=== PATIENT | female | born 1985 | race Two or more races ===

== ENCOUNTER 2024-11-17 07:46 | Outpatient (AMB) | payer MEDICARE, MEDICAID, SELFPAY ==
--- OUTSIDE RECORDS SUMMARY | 2024-11-17 07:48 | XMS_ITS ---
Author Name [facility] Organization Unknown History of Medication Use Medication Directions Dispensed Refills Start Date End Date Stat us predniSONE (DELTASONE) 20 mg tablet Take 1 tablet (20 mg total) by mouth 1 (one) time each day for 7 days. 10/23/2024 active predniSONE (DELTASONE) 5 mg tablet Take 3 tablets (15 mg total) by mouth 1 (one) time each day for 7 days, THEN 2 tablets (10 mg total) 1 (one) time each day for 7 days, THEN 1 tablet (5 mg total) 1 (one) time each day for 7 days. 10/23/2024 active arm brace misc 1 each 1 (one) time each day. 10/14/2024 active [place]a, 28, 0.15-0.03 mg per tablet TAKE 1 TABLET BY MOUTH EVERY DAY 10/06/2024 active esomeprazole (NexIUM) [address] capsule Take 1 capsule (40 mg total) by mouth 1 (one) time each day before breakfast. Do not open capsule. 09/18/2024 active Vitamin D3 50 mcg (2,000 unit) tablet Take 1 tablet (2,000 Units total) by mouth 1 (one) time each day. 05/25/2024 active acetaminophen (Tylenol Extra Strength) 500 mg tablet Take 2 tablets (1,000 mg total) by mouth every 6 (six) hours if needed for mild pain. 05/13/2024 active food supplemt, lactose-reduced (Boost High Protein) 0.08 gram- 1.1 kcal/mL liquid Take 1 Dose by mouth 3 (three) times a day. 03/28/2024 active DISPOSABLE GLOVES MISC 1 Container by No t Applicable route. 08/07/2023 active fluticasone propionate (FLONASE) 50 mcg/actuation nasal spray INHALE 2 SPRAYS IN EACH NOSTRIL ONCE A DAY DIRECTED 01/28/2021 active Problems Problem Status Onset Date Problem Type Date of Resoluti on Source Strabismus active 2024-09-05 ProblemAct [facility] Psychiatric diagnosis active 2019-01-15 ProblemAct [facility] Low vitamin D level active 2022-09-04 ProblemAct [facility] Low weight active 2014-09-28 ProblemAct [facility] Irregular menses active 2017-08-16 ProblemAct [facility] Developmental delay disorder active 2011-11-15 ProblemAct [facility] Thyroid nodule active 2018-01-16 ProblemAct [facility] Gastroesophageal reflux disease without esophagitis active 2014-08-03 ProblemAct [facility] Dysphagia active 2018-01-17 ProblemAct [facility] 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
--- OUTSIDE RECORDS SUMMARY | 2024-11-17 07:48 | XMS_ITS | Encounter Summary ---
Author Organization [employer] Address [address] [place] [address] Care Team Providers Care Hand Mica Plate Layer Name Role Phone Shailesh Ferrell MD Primary Care Provider [phone] Reason for Visit * Reason Onset Date Comments Request For Order(s) 11/10/2024 [employer] Order # [id number] Encounter Details Date Type Department Care Team ([facility] st Contact Info) Description 11/10/2024 Telephone Internal Medicine - [place] [address] [place] [phone] Nora Molina MA Request For Order(s) ([facility] Order # [id number]/) Social History Tobacco Use Types Packs/Day Years [...] care for your loved ones. For example, housekeeper child care or elderly care for an older adult? [...] PM EST documented as of this encounter Progress Notes * Nora Molina MA - 11/12/2024 9:29 AM EDT Scanned into chart and faxed to [facility] [phone] * Nora Molina MA - 11/10/2024 8:13 AM EDT [facility] Order # [id number] Please sign & documented in this encounter Plan of Treatment Upcoming Encounters Date Type Department Care Team (Late st Contact Info) Description 11/27/2024 9:00 AM EDT Office Visit Rheumatology - [place] [address] [place] [address] Divina Hoffman MD [address] [place] [address] 02/13/2025 8:00 AM EST Office Visit Gastroenterology - [place] 175 [facility] 175 [facility] 200 [place] [phone] Gissell Olivera NP 175 [facility] 200 [place] [address] documented as of this encounter Visit Diagnoses Not on filedocumented in this encounter Additional Health Concerns Assessment Noted Time PHQ-9 Depression Total Score: 10 025 9:43 AM EDT A fall risk assessment has been complete d for the patient 10/24/2024 9:03 AM EDT documented as of this encounter Care Teams Hand Mica Plate Layer Relationship Specialty Start Date End Date Shailesh Ferrell MD 175 [facility] 200 [place] [phone] PCP - General 06/09/22 documented as of this encounter
--- NOTE | 2024-11-17 08:08 | MHC.OFFVIS ---
Intake Visit Reasons: Problem swallowing Allergies No Known Allergies Allergy (Verified 11/10/24 08:09) HPI Comments Details: The patient is a 39-year-old female presenting with concerns related to potential worsening neurological symptoms. Historically, she experienced developmental delay and brain abnormalities on the left side. She was born in [place] with umbilical cord wrapped around her neck. She talked when she was about 9 years old and walked when she was about 7 years old. She went to school and had special education sessions. According to family, she used to speak a lot until few years ago. She has not seen a neurologist for many years. She has never had seizures, despite these findings. Recently, she has developed new tics involving her mouth and fingers and has been having staring episodes. These changes are coupled with significant reductions in her verbal communication abilities and cognition. She exhibits right-sided weakness and incontinence, with an escalation in difficulty performing activities of daily living, including eating and swallowing. Her right hand shows inflammation and bruising, suspected but unconfirmed to be due to rheumatoid arthritis, with prednisone being marginally effective. The deterioration has been apparent over several years, with a noted reduction in her speech from being very verbal to currently barely speaking, exacerbating her care. Additionally, she shows symptoms consistent with ocular issues leading to involuntary crossing of her eyes, and she manifests significant nervousness and slower motor functions. A head trauma from an accident over six years ago is on record. [facility] Medical History (Updated 11/17/24 @ 08:20 by Ari Mckeon MD) Failure of fundoplication GERD (gastroesophageal reflux disease) Low weight Irregular menses Bladder spasms Thyroid nodule External constriction of right hand Dysphagia Psychiatric diagnosis Anxiety Vitamin D deficiency Amygdalolith Strabismus Surgical History (Updated 11/10/24 @ 08:08 by Shireen Sanchez CMA) History of Moody fundoplication H/O hernia repair H/O eye surgery H/O esophagogastroduodenoscopy Family History (Updated 11/10/24 @ 08:09 by Shireen Sanchez CMA) Maternal Grandmother Leukemia Review of Systems Const Details: - Neurological- Right-sided weakness observed. - Musculoskeletal- Right hand bruising and inflammation noted. - Ophthalmologic- Involuntary eye crossing noted. Physical Exam Neuro Other: Mental Status: She is alert and awake looking around made an eye contact but did not speak. She followed some one-step commands. Cranial Nerves: There is mild central type of right-sided facial weakness. External ocular muscles are intact though her right eye seemed to stay somewhat nasally. Motor: Bulk and tone normal in all extremities. No significant muscle weakness in arms and legs. No drift. Reflexes: Deep tendon reflexes are 1+ with flexor plantars. Gait and Station: Slow and cautious holding onto hands. She resist standing or walking. Extrapyramidal: Full facial expressions and blinking. No rigidity. Movements are appropriate with no tremor or abnormality. Speech: She did not speak. Assessment & Plan Assessment & Plan (1) Chronic static encephalopathy: Code(s): G93.49 - Other encephalopathy Category: Medical (2) Right hemiparesis: Code(s): G81.91 - Hemiplegia, unspecified affecting right dominant side Category: Medical (3) Aphasia: Code(s): R47.01 - Aphasia Category: Medical Plan: I advised an MRI to evaluate the left cerebral hemisphere abnormalities and an EEG to address the staring spells and cognitive declines, ensuring these are not related to undiagnosed subclinical seizures. Continued use of current medication for suspected rheumatoid arthritis is considered while further evaluation of the right-hand inflammation persists. Observation of ocular movements and monitoring communication ability changes were addressed, making note of the vital importance to address these promptly. Regular follow-up and observation provide the best insight into the patient's changes over time. 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
== END 2024-11-17 08:29 | disposition home or self-care (01) ==
LOC: HO.HSM 07:46
PROVIDERS: PCP Student in an Organized Health Care Education/Training Program; Visit Provider Psychiatry & Neurology Neurology
DX: G93.49 Other encephalopathy (principal); G81.91 Hemiplegia, unspecified affecting right dominant side; R47.01 Aphasia; R62.59 Other lack of expected normal physiological development in childhood
CPT/HCPCS: 99205

== ENCOUNTER → 2024-11-17 07:46 | Outpatient (BNVA) | payer MEDICARE, MEDICAID, SELFPAY | PROVIDERS: PCP Student in an Organized Health Care Education/Training Program; Visit Provider Psychiatry & Neurology Neurology | DX: G93.49 Other encephalopathy (principal); G81.91 Hemiplegia, unspecified affecting right dominant side; F09 Unspecified mental disorder due to known physiological condition; R47.01 Aphasia | CPT/HCPCS: 99202 ==

== ENCOUNTER 2024-11-25 12:52 | Outpatient (REF) | payer MEDICARE, MEDICAID, SELFPAY ==
--- OUTSIDE RECORDS SUMMARY | 2024-01-15 07:26 | XMS_ITS | Encounter Summary ---
Author Organization [email or web address] Address [address] [place] [address] Care Team Providers Care Lettuce Cutter Name Role Phone Shailesh Ferrell MD Primary Care Provider [phone] Encounter Details Date Type Department Care Team (Late st Contact Info) Description 01/15/2024 7:26 AM EDT Hospital Encounter TH HISTORIC ENCOUNTERS EASTERN CONVERSION ONLY Karsten King, ESTEL[address] [place] [address] Social History Tobacco Use Types Packs/Day Years Used Date Smoking Tobacco: Never Smokeless Tobacco: Never Alcohol Use Standard Drinks/Week Comments No 0 (1 standard drink = 0.6 oz pur e alcohol) Housing Instability Answer Date Recorde d Are you worried that in the next 2 months you may not have stable housing? No 10/22/2024 Food Access & Nutrition Answer Date Rec orded Do you have access to a vari ety of food including fruits and vegetables? Yes 10/22/2024 Access to Healthcare Answer Date Record ed Within the last 3 months, ho w many times did you visit the emergency department for your medical care? 0 10/22/2024 Health Literacy Answer Date Recorded How often do you need to hav e someone help you when you read instructions, pamphlets, or other written material from your doctor or pharmacy? Never 10/22/2024 Caregiver: How often do you need to have someone help you when you read instructions, pamphlets, or other written material from your doctor or pharmacy? Not on file 10/22/2024 Financial Risk Answer Date Recorded How hard is it for you to pa y for the very basics like food, housing, medical care, and air conditioning / heating? Not very hard 10/22/2024 Transportation Answer Date Recorded Has the lack of transportati on kept you from meetings, work, or from getting things needed for daily living? No Has the lack of transportati on kept you from medical appointments or from getting medications? No 10/22/2024 Social Isolation Answer Date Recorded How often do you feel lonely or isolated from th ose around you? Never 10/22/2024 Food Risk Answer Date Recorded Within the past 12 months we worried whether our food would run out before we got money to buy more. Never true 10/22/2024 Within the past 12 months th e food we bought just didn't last and we didn't have money to get more. Never true 10/22/2024 Dependent Care Answer Date Recorded Do you need help finding or paying for care for your loved ones. For example, child care associate teacher or elderly care for an older adult? No 10/22/2024 Education Answer Date Recorded Do you think completing more education or training, like finishing a GED, going to college, or learning a trade, would be helpful for you? No 10/22/2024 Employment and Income Answer Date Recor ded During the last four weeks, have you been actively looking for work? No 10/22/2024 Living Situation Answer Date Recorded What is your living situation? 0 10/22/2024 Comments Unknown Sex and Gender Information Value Date Recorded Sex Assigned at Female 03/06/2024 9:48 AM EST Legal Sex Female 7:33 PM EST Gender Identity Female 03/06/2024 9:48 AM EST Sexual Orientation Choose not to disclose 2024 2:30 PM EST documented as of this encounter Plan of Treatment Upcoming Encounters Date Type Department Care Team (Late st Contact Info) Description 11/27/2024 9:00 AM EDT Office Visit Rheumatology - [place] [address] [place] [phone] Divina Hoffman MD [address] [place] [address] 02/13/2025 8:00 AM EST Office Visit Gastroenterology - [place] [address] [facility] [address] [place] [address] Gissell Olivera NP [address] [place] [address] documented as of this encounter Procedures Procedure Name Priority Date/Time Associated Diagnosis Comments CR BARIUM SWALLOW Routine 01/15/2024 1:3 7 PM EDT documented in this encounter Results * CR BARIUM SWALLOW (01/15/2024 1:37 PM EDT) Anatomical Region Laterality Modality Radiographic Danielle ging 01/15/2024 7:32 AM EDT Narrative 01/15/2024 1:37 PM EDT [facility] Diagnostic Imaging Department [address] [place] [address] Patient: MARY GILMAN /Age/Sex: 1985 - 38 - F Unit#: [id number] [facility] Ordering Physician: KARSTEN KING PA-C CR Barium Swallow - 01/15/24 - 0819 Report Status:Signed FINDINGS: Double contrast esophagram performed. Exam is limited due to patient's developmental delay. Patient's heavy equipment technician working to get patient to swallow barium with limited success. COMPARISON: Barium swallow December 20, 2017 HISTORY: Patient is a 38-year-old female with history of developmental delay here with her heavy equipment technician. Per patient's heavy equipment technician, reports gagging with eating. Marine Engine Mechanic radiographs: 1 view chest radiograph demonstrates cardiac and mediastinal borders within normal limits. Lungs are overall clear with mild dependent bibasilar atelectasis. Osseous structures are overall unremarkable. 1 view lateral soft tissue neck demonstrates no prevertebral soft tissue masses. Airway is widely patent. There are moderate bony degenerative changes of the cervical spine. Effervescent crystals were administered orally. Thick and thin barium were administered orally under fluoroscopic control. Pharyngoesophagram: Rapid sequence imaging of the hypopharynx during swallowing demonstrates prompt initiation of swallowing. There is normal soft palate elevation and normal epiglottic motion. There is no laryngeal penetration or north aspiration. There is moderate residual in the vallecula and in the piriform sinuses, also seen on prior imaging from November 2017. Thoracic esophagus: Limited evaluation of esophagus demonstrates overall normal mucosal pattern without evidence of ulceration or mass formation. There is suboptimal distention of esophagus due to patient taking very small sips of barium. Patient also unable to swallow 13 mm barium tablet, as heavy equipment technician reports patient typically takes pills with applesauce. Hiatal hernia: Unable to assess adequately for hiatal hernia given patient is unable to drink lying prone. No obvious fixed hiatal hernia with patient in upright position. Reflux: Not seen on today's exam 13mm Barium pill: Unable to tolerate. DAP: 1.09 Gycm^2 Exam performed and dictated by: Aydee Stewart PA-C Supervising physician: Sanjay Oleary MD IMPRESSION: Very limited exam as described above. Given patient's symptoms, recommend modified barium swallow with speech pathology present. Dictating Physician: SANJAY OLEARY Electronically Signed by: SANJAY OLEARY Dic Date/Time: 01/15/24 5270 Sign date/Time: 01/15/24 1332 Procedure Note Sanjay Oleary MD - 01/22/2024 [facility] Diagnostic Imaging Department [address] [place] [address] Patient: MARY GILMAN/Age/Sex: 1985 - 38 - F Unit#: [id number] Location/Status: SPDIGEN/REG CLI Mnemonic/Ordering Site: [facility] Ordering Physician: KARSTEN KING PA-C CR Barium Swallow - 01/15/24 - 0819 Report Status:Signed FINDINGS: Double contrast esophagram performed. Exam is limited due topatient's developmental delay. Patient's heavy equipment technician working to get patient toswallow barium with limited success. COMPARISON: Barium swallow December 20, 2017 HISTORY: Patient is a 38-year-old female with history of developmentaldelay here with her heavy equipment technician. Per patient's heavy equipment technician, reports gagging witheating. Marine Engine Mechanic radiographs: 1 view chest radiograph demonstrates cardiac andmediastinal borders within normal limits. Lungs are overall clear with milddependent bibasilar atelectasis. Osseous structures are overall unremarkable. 1view lateral soft tissue neck demonstrates no prevertebral soft tissue masses.Airway is widely patent. There are moderate bony degenerative changes of thecervical spine. Effervescent crystals were administered orally. Thick and thin bariumwere administered orally under fluoroscopic control. Pharyngoesophagram: Rapid sequence imaging of the hypopharynx duringswallowing demonstrates prompt initiation of swallowing. There is normal softpalate elevation and normal epiglottic motion. There is no laryngeal penetrationor north aspiration. There is moderate residual in the vallecula and in the piriform sinuses, also seen on prior imaging from November 2017. Thoracic esophagus: Limited evaluation of esophagus demonstrates overallnormal mucosal pattern without evidence of ulceration or mass formation. Thereis suboptimal distention of esophagus due to patient taking very small sipsof barium. Patient also unable to swallow 13 mm barium tablet, as caretakerreports patient typically takes pills with applesauce. Hiatal hernia: Unable to assess adequately for hiatal hernia given patientis unable to drink lying prone. No obvious fixed hiatal hernia with patientin upright position. Reflux: Not seen on today's exam 13mm Barium pill: Unable to tolerate. DAP: 1.09 Gycm^2 Exam performed and dictated by: Aydee Stewart PA-C Supervising physician: Sanjay Oleary MD IMPRESSION: Very limited exam as described above. Given patient's symptoms,recommend modified barium swallow with speech pathology present. Dictating Physician: SANJAY OLEARY Electronically Signed by: SANJAY OLEARY Dic Date/Time: 01/15/24 0847 Sign date/Time: 01/15/24 1339 us Karsten PALMER IMG XR PROCEDURES Final Result documented in this encounter Visit Diagnoses Not on filedocumented in this encounter Care Teams Lettuce Cutter Relationship Specialty Start Date End Date Shailesh Ferrell MD [address] [place] [phone] PCP - General 06/09/22 documented as of this encounter
--- OUTSIDE RECORDS SUMMARY | 2024-11-25 14:09 | XMS_ITS | Encounter Summary ---
Author Organization [employer] Address [address] [place] [address] Care Team Providers Care Safety Patrol Officer Name Role Phone Shailesh Ferrell MD Primary Care Provider [phone] Reason for Visit * Reason Onset Date Comments Urinary Frequency 11/12/2024 Patient incont inent Encounter Details Date Type Department Care Team (Late st Contact Info) Description 11/12/2024 Telephone Internal Medicine - [place] [address] [facility] [address] [place] [address] Shailesh Ferrell MD [address] [place] [phone] Social History Tobacco Use Types Packs/Day Years [...] for your loved ones. For example, child development consultant or elderly care for an older adult? [...] as of this encounter Progress Notes * Ivet Velasquez RN - 11/12/2024 4:17 PM EDT Call to pt # [phone], spoke to pt mother on VR Ordered a u/a for uti s/s * Lesvia Fraga - 11/12/2024 3:59 PM EDT Dark color urine Patient incontinent mother feels as though she has uti -and request test to rule out documented in this encounter Plan of Treatment Upcoming Encounters Date Type Department Care Team (Late st Contact Info) Description 11/27/2024 9:00 AM EDT Office Visit Rheumatology - [place] [address] [place] [address] Divina Hoffman MD [address] [place] [address] 02/13/2025 8:00 AM EST Office Visit Gastroenterology - [place] [address] [facility] 175 [facility] [address] [place] [phone] Gissell Olivera NP [address] [place] [address] documented as of this encounter Visit Diagnoses Diagnosis Infective urethritis- Primary documented in this encounter Additional Health Concerns Assessment Noted Time PHQ-9 Depression Total Score: 10 09/10/ 025 9:43 AM EDT A fall risk assessment has been complete d for the patient 10/24/2024 9:03 AM EDT documented as of this encounter Care Teams Safety Patrol Officer Relationship Specialty Start Date End Date Shailesh Ferrell MD 175 [facility] 200 [place] [phone] PCP - General 06/09/22 documented as of this encounter
--- OUTSIDE RECORDS SUMMARY | 2024-11-25 14:10 | XMS_ITS | Encounter Summary ---
Author Organization [employer] Address [address] [place] [address] Care Team Providers Care Senior It Engineer Name Role Phone Shailesh Ferrell MD Primary Care Provider [phone] Encounter Details Date Type Department Care Team ([facility] st Contact Info) Description 10/20/[address] [facility] [address] [phone] Lee Ann Curry PA 175 [place] [address] Social History Tobacco Use Types Packs/Day Years [...] care for your loved ones. For example, children's aide or elderly care for an older adult? [...] as of this encounter Progress Notes * Korin Espinosa - 10/20/2024 8:49 AM EDT Patricia is calling requesting a call back with her lab results documented in this encounter Plan of Treatment Upcoming Encounters Date Type Department Care Team (Late st Contact Info) Description 11/27/2024 9:00 AM EDT Office Visit Rheumatology - [place] [address] [place] [address] Divina Hoffman MD [address] [place] [address] 02/13/2025 8:00 AM EST Office Visit Gastroenterology - [place] [address] [phone] Gissell Olivera, SUSI [address] [place] [phone] documented as of this encounter Visit Diagnoses Not on filedocumented in this encounter Additional Health Concerns Assessment Noted Time PHQ-9 Depression Total Score: 10 025 9:43 AM EDT documented as of this encounter Care Teams Senior It Engineer Relationship Specialty Start Date End Date Shailesh Ferrell MD [address] [phone] PCP - General 06/09/22 documented as of this encounter
--- OUTSIDE RECORDS SUMMARY | 2024-11-25 14:10 | XMS_ITS | Encounter Summary ---
Author Organization [employer] Address [address] [place] [address] Care Team Providers Care Land Department Head Name Role Phone Shailesh Ferrell MD Primary Care Provider [phone] Encounter Details Date Type Department Care Team ([facility] st Contact Info) Description 10/22/[address] [facility] [address] [phone] Lee Ann Curry PA 175 [place] [address] Social History Tobacco Use Types Packs/Day Years [...] for your loved ones. For example, child welfare specialist or elderly care for an older adult? [...] as of this encounter Progress Notes * Gaviota Ocampo - 10/22/2024 8:51 AM EDT Yazmin (mom) called in requesting a call back to go over Patricia's blood work. Please give her a call when able [phone]. Thanks documented in this encounter Plan of Treatment Upcoming Encounters Date Type Department Care Team (Late st Contact Info) Description 11/27/2024 9:00 AM EDT Office Visit Rheumatology - [place] [address] [place] [address] Divina Hoffman MD [address] [place] [address] 02/13/2025 8:00 AM EST Office Visit Gastroenterology - [place] 175 [facility] 175 [facility] 200 [place] [phone] Gissell Olivera, SUSI [address] [place] [address] documented as of this encounter Visit Diagnoses Not on filedocumented in this encounter Additional Health Concerns Assessment Noted Time PHQ-9 Depression Total Score: 10 025 9:43 AM EDT documented as of this encounter Care Teams Land Department Head Relationship Specialty Start Date End Date Shailesh Ferrell MD 175 [facility] 200 [place] [phone] PCP - General 06/09/22 documented as of this encounter
--- OUTSIDE RECORDS SUMMARY | 2024-11-25 14:10 | XMS_ITS | Encounter Summary ---
Author Organization [employer] Address [address] [place] [address] Care Team Providers Care Local Hazmat Driver Name Role Phone Shailesh Ferrell MD Primary Care Provider [phone] Encounter Details Date Type Department Care Team (Late st Contact Info) Description 06/23/2024 Nurse Triage Gastroenterology [facility] [address] [phone] Karsten Gonzales, ESTELA [address] [place] [phone] Social History Tobacco Use Types Packs/Day Years Used Date Smoking Tobacco: Never Smokeless Tobacco: Never Alcohol Use Standard Drinks/Week Comments No 0 (1 standard drink = 0.6 oz pur e alcohol) Comments Unknown Sex and Gender Information Value [...] 11/27/2024 9:00 AM EDT Office Visit Rheumatology [facility] [address] [place] [address] Divina Hoffman MD [address] [place] [address] 02/13/2025 8:00 AM EST Office Visit Gastroenterology [facility] [address] [place] [address] Gissell Olivera, SUSI [address] [place] [address] documented as of this encounter Visit Diagnoses Not on filedocumented in this encounter Care Teams Local Hazmat Driver Relationship Specialty Start Date End Date Shailesh Ferrell MD 175 [facility] [address] [place] [address] PCP - General 06/09/22 documented as of this encounter
--- OUTSIDE RECORDS SUMMARY | 2024-11-25 14:10 | XMS_ITS | Clinical Summary ---
Author Organization [facility] Address [address] [place] [address] Phone Care Team Providers Care Direct Marketing Executive Name Role Phone Shailesh Ferrell MD Primary Care Provider [phone] Allergies No known active allergies Medications fluticasone propionate (FLONASE) 50 mcg/actuation nasal spray 1 Active DISPOSABLE GLOVES MISC 1 Container by Not Applicable route. 4 Active food supplemt, lactose-reduced (Boost High Protein) 0.08 gram- 1.1 kcal/mL liquid Take 1 Dose by mouth 3 (three) times a day. 2700 mL 11 5 Active acetaminophen (Tylenol Extra Strength) 500 mg tablet Take 2 tablets (1,000 mg total) by mouth every 6 (six) hours if needed for mild pain. 90 tablet 1 5 Active Vitamin D3 50 mcg (2,000 unit) tablet Take 1 tablet (2,000 Units total) by mouth 1 (one) time each day. 5 Active esomeprazole (NexIUM) [address] capsule Take 1 capsule (40 mg total) by mouth 1 (one) time each day before breakfast. Do not open capsule. 90 each 3 5 09/19/19 26 Active Al[place]a, 28, 0.15-0.03 mg per tablet TAKE 1 TABLET BY MOUTH EVERY DAY 84 tablet 5 5 Active arm brace miscIndications :Right hand pain,Tardive dyskinesia 1 each 1 (one) time each day. 5 Active predniSONE (DELTASONE) 5 mg tablet Take 3 tablets (15 mg total) by mouth 1 (one) time each day for 7 days, THEN 2 tablets (10 mg total) 1 (one) time each day for 7 days, THEN 1 tablet (5 mg total) 1 (one) time each day for 7 days. 42 each 5 11/14/19 25 predniSONE (DELTASONE) 20 mg tablet Take 1 tablet (20 mg total) by mouth 1 (one) time each day for 7 days. 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 Repeat in 1 year surveillance recommended Bladder spasms 08/16/2017 Irregular menses 08/16/2017 Low weight 09/28/2014 Gastroesophageal reflux disease without esophagi tis 08/03/2014 Overview (02/20/2024): S/p fundoplication 2004 Developmental delay disorder 11/15/2011 Assessment & Plan (10/24/2024 10:11 AM EDT): Orders: Interferon gamma for TB, qualitative; Future Encounters Date Type Department Care Team Description 11/14/2024 Telephone Internal Medicine - [place] [address] [facility] [address] [place] [address] Shailesh Ferrell MD 11/12/2024 Telephone Internal Medicine - [place] [address] [facility] [address] [place] [phone] Shailesh Ferrell MD 11/12/2024 Telephone [facility] - [place] [address] [facility] [address] [place] [phone] Clayton Reid MA 11/10/2024 Telephone Internal Medicine - [place] [address] [address] Nora Molina MA 11/03/2024 Telephone Rheumatology - [place] [address] [place] [address] Divina Hoffman MD 10/31/2024 Telephone Internal Medicine - [place] [address] [address] Maribel Sanon MA 10/29/2024 Telephone Internal Medicine [facility] [address] [address] Nora Molina MA 10/24/2024 9:00 AM EDT Office Visit Internal Medicine [address] [address] Edy Kwan MD Developmental delay disorder (Primary Dx); Rheumatoid arthritis, involving unspecified site, unspecified whether rheumatoid factor present ([facility] V24, [facility] V28); Preventative health care 10/23/2024 11:00 AM EDT Consult Rheumatology - [place] [address] [place] [address] Divina Hoffman MD Inflammatory arthritis (Primary Dx); Polyarthralgia; Positive DINAH (antinuclear antibody) 10/22/2024 Telephone Orthopedic Surgery - [place] [address] [address] Lee Ann Curry PA 10/22/2024 Telephone Orthopedic Surgery [facility] [address] [address] Radha Powell 10/22/2024 Telephone Orthopedic Surgery [place] [address] [address] Lee Ann Curry PA 10/21/2024 10:45 AM EDT Telemedicine Internal Medicine [facility] [address] [phone] Mariya Wolf PA Developmental delay disorder (Primary Dx) 10/21/2024 Telephone Internal Medicine - [place] 175 [facility] [address] [place] [address] Shailesh Ferrell MD 10/20/2024 Telephone Orthopedic Surgery [facility] [address] [address] Lee Ann Curry PA 10/14/2024 4:00 PM EDT Telemedicine Internal Medicine - [place] [address] [facility] [address] [place] [address] Shailesh Ferrell MD Abnormal laboratory test result (Primary Dx); Low urine uric acid level; Abnormal finding on imaging 10/14/2024 [place] Internal Medicine [facility] [address] [address] Shailesh Ferrlel MD 10/13/2024 Telephone Internal Medicine [facility] [address] [address] Shailesh Ferrell MD 10/13/2024 Telephone Orthopedic Surgery [facility] [address] [phone] Apoorva De La Torre 10/09/2024 2:00 PM EDT Consult Orthopedic Surgery [facility] 175 [facility] [address] [place] [address] Lee Ann Curry PA Rheumatoid arthritis involving right hand, unspecified whether rheumatoid factor present (CMS/HCC V24, CMS/HCC V28) (Primary Dx); Right hand pain 10/07/2024 Telephone Internal Medicine [facility] [address] [address] Nora Molina MA 10/03/2024 9:08 AM EDT - 10/03/2024 11:59 PM EDT [facility] Xray [address] [place] [address] Right hand pain Discharge Disposition: Home or Self Care 10/03/2024 9:08 AM EDT - 10/03/2024 11:59 PM EDT Hospital Encounter [facility] Xray [address] [place] [address] Chronic right shoulder pain Discharge Disposition: Home or Self Care 10/03/2024 8:30 AM EDT Office Visit Internal Medicine - [place] [address] [facility] [address] [place] [phone] aJy Heck NP Right hand pain (Primary Dx); Chronic right shoulder pain; Tardive dyskinesia; Developmental delay disorder 09/18/2024 10:40 AM EDT Office Visit Gastroenterology - [place] [address] [facility] [address] [facility] 200 [place] [address] Gissell Olivera NP Gastroesophageal reflux disease without esophagitis (Primary Dx); Dysphagia, unspecified type from Last 3 Months Surgical History Surgery Date Site/Laterality Comments OTHER SURGICAL HISTORY 2003 PROCEDURE: MI RPR INGUN HERNIA SLIDING ANY AGE; COMMENT: [facility], [place] fundoplication for reflux. ESOPHAGOGASTRODUODENOSCOPY 07/19/2017 PROCEDURE: MI EGD TRANSORAL BIOPSY SINGLE/MULTIPLE; COMMENT: Chronic gastritis without activity. No H. pylori appreciated. HERNIA REPAIR EYE SURGERY MOODY FUNDOPLICATION N/A Medical History Medical History Date Comments Moderate intellectual disabilities DX:Moderate intellectual disabilities Nausea DX:Nausea Nonverbal DX:Nonverbal History of Moody fundoplication DX:History of Moody fundoplication GERD (gastroesophageal reflux disease) Dysphagia Anxiety Family History Medical History Relation Name Comments Leukemia Maternal Grandfather Relation Name Status Comments Maternal Grandfather Social History Tobacco Use Types Packs/Day Years [...] your loved ones. For example, child nutrition assistant or elderly care for an older adult? [...] not to disclose 2024 2:30 PM EST Obstetrics History Last Filed Vital Signs Vital Sign Reading Time Taken Comments Blood Pressure 106/70 10/24/2024 9:06 AM EDT Pulse 115 10/24/2024 9:06 AM EDT Temperature 36 C (96.8 F) 10/24/2024 9:06 AM EDT Respiratory Rate 18 08/08/2024 2:47 PM EDT Oxygen Saturation 98% 10/24/2024 9:06 AM EDT Inhaled Oxygen Concentration - - Weight 48.2 kg (106 lb 3.2 oz) 10/24/2024 9:06 A M EDT Height 157.5 cm (5' 2 ) 10/24/2024 9:06 AM EDT Body Mass Index 19.42 10/24/2024 9:06 AM EDT Plan of Treatment Upcoming Encounters Date Type Department Care Team (Late st Contact Info) Description 11/27/2024 9:00 AM EDT Office Visit Rheumatology - [place] [address] [place] [phone] Divina Hoffman MD [address] [place] [address] [place] [address] 02/13/2025 8:00 AM EST Office Visit Gastroenterology - [place] [address] [place] [address] Gissell Olivera, SUSI [address] [place] [address] Health Maintenance Due Date Last Done Comments Cervical Cancer Screening: Pap Smear 2008 HIV Screening 02/25/2022 Hepatitis C Screening 02/25/2022 COVID-19 Vaccine ( season) 2024 08/06/2020, 07/13/2020 Influenza Vaccine (#1) 2024 9, 02/26/2018, 12/07/2016, Additional history exists Social Influencers of Health Screening 10/22/2025 10/22/2024 Medicare Annual Wellness Visit 10/24/2025 10/24/2024 Cholesterol Screening (Lipid Panel) 08/09/2028 08/10/2023 DTaP,Tdap,and Td Vaccines (10 - Td or Tdap) 08/11/2033 08/12/2023, 02/22/2012, 09/24/2006, Additional history exists HIB Vaccines Completed 10/24/1988, 10/24/1988 IPV Vaccines Completed 06/24/1994, 03/1988, 10/24/1988, Additional history exists MMR Vaccines Completed 06/24/1994, 01/24/1989 Hepatitis B Vaccines Completed 04/26/1999, 08/24/1998, 07/24/1998, Additional history exists Hepatitis A Vaccines Aged Out 09/24/2006 No long er eligible based on patient's age to complete this topic Meningococcal ACWY Vaccine Aged Out 09/24/2006 N o longer eligible based on patient's age to complete this topic Varicella Vaccines Completed 09/24/2006, 07/29/1998 HPV Vaccines Completed 01/15/2007, 06/2006, 06/15/2006 Depression Screening Completed 10/22/2024 Meningococcal B Vaccine Aged Out No l onger eligible based on patient's age to complete this topic Pneumococcal Vaccine: Pediatrics (0 to 5 Years) and At-Risk Patients (6 to 49 Years) Aged Out No longer eligible based on patient's age to complete this topic RSV Immunization Patients Under 20 months Aged Out No longer eligible based on patient's age to complete this topic Procedures Procedure Name Priority Date/Time Associated Diagnosis Comments MI PROTEIN ELECTROPHORETIC FRACTIONATION & QUANTITATION SERUM Routine 11/13/2024 4:33 PM EDT Polyarthralgia Low urine uric acid level MI IMMUNOFIXATION ELECTROPHORESIS SERUM Routine 11/13/2024 4:33 PM EDT Polyarthralgia Low urine uric acid level PROTEIN, TOTAL Routine 11/13/2024 4:33 PM EDT Polyarthralgia Low urine uric acid level TAM URINE CULTURE TUBE Routine 11/14/19 25 4:33 PM EDT Infective urethritis URINALYSIS WITH REFLEX MICROSCOPIC AND CULTURE Routine 11/13/2024 4:33 PM EDT Infective urethritis IMMUNOGLOBULINS IGG, IGA, IGM Routine 11/13/2024 4:33 PM EDT Polyarthralgia Low urine uric acid level IMMUNOFIXATION ELECTROPHORESIS Routine 11/13/2024 4:33 PM EDT Polyarthralgia Low urine uric acid level URINALYSIS WITH REFLEX MICROSCOPIC AND CULTURE Routine 11/13/2024 4:33 PM EDT Infective urethritis URIC ACID Routine 11/13/2024 4:33 PM EDT Polyarthralgia Low urine uric acid level SEDIMENTATION RATE Routine 11/13/2024 4: 33 PM EDT Polyarthralgia Low urine uric acid level C-REACTIVE PROTEIN Routine 11/13/2024 4: 33 PM EDT Polyarthralgia Low urine uric acid level CYCLIC CITRULLINATED PEPTIDE, IGG AND IGA Routine 11/13/2024 4:33 PM EDT Polyarthralgia Low urine uric acid level KAPPA-LAMBDA QUANTITATIVE FREE LIGHT CHAINS Routine 11/13/2024 4:33 PM EDT Polyarthralgia Low urine uric acid level IMMUNOFIXATION ELECTROPHORESIS Routine 11/13/2024 4:33 PM EDT Polyarthralgia Low urine uric acid level PROTEIN ELECTROPHORESIS, SERUM Routine 11/13/2024 4:33 PM EDT Polyarthralgia Low urine uric acid level CULTURE URINE Routine 11/13/2024 4:33 PM EDT Infective urethritis INTERFERON GAMMA INTERPRETATION Routine 10/24/2024 9:30 AM EDT Developmental delay disorder Rheumatoid arthritis, involving unspecified site, unspecified whether rheumatoid factor present ([facility] V24, [facility] V28) Preventative health care INTERFERON GAMMA ANTIGEN 2 Routine 10/24/2024 9:30 AM EDT Developmental delay disorder Rheumatoid arthritis, involving unspecified site, unspecified whether rheumatoid factor present ([facility] V24, [facility] V28) Preventative health care INTERFERON GAMMA ANTIGEN 1 Routine 10/24/2024 9:30 AM EDT Developmental delay disorder Rheumatoid arthritis, involving unspecified site, unspecified whether rheumatoid factor present ([facility] V24, [facility] V28) Preventative health care INTERFERON GAMMA MITOGEN Routine 10/24/2024 9:30 AM EDT Developmental delay disorder Rheumatoid arthritis, involving unspecified site, unspecified whether rheumatoid factor present ([facility] V24, [facility] V28) Preventative health care INTERFERON GAMMA NIL Routine 10/24/2024 9:30 AM EDT Developmental delay disorder Rheumatoid arthritis, involving unspecified site, unspecified whether rheumatoid factor present ([facility] V24, [facility] V28) Preventative health care INTERFERON GAMMA FOR TB, QUALITATIVE Routine 10/24/2024 9:30 AM EDT Developmental delay disorder Rheumatoid arthritis, involving unspecified site, unspecified whether rheumatoid factor present ([facility] V24, [facility] V28) Preventative health care THYROID STIMULATING HORMONE WITH REFLEX TO FREE T4 AND FREE T3 Routine 10/24/2024 9:30 AM EDT Thyroid nodule CBC WITH AUTO DIFFERENTIAL Routine 10/10/2024 8:48 AM EDT Right hand pain CBC AND DIFFERENTIAL Routine 10/10/2024 8:48 AM EDT Right hand pain C-REACTIVE PROTEIN Routine 10/10/2024 8: 48 AM EDT Right hand pain RHEUMATOID FACTOR Routine 10/10/2024 8:4 8 AM EDT Right hand pain SEDIMENTATION RATE Routine 10/10/2024 8: 48 AM EDT Right hand pain URIC ACID Routine 10/10/2024 8:48 AM EDT Right hand pain BASIC METABOLIC PANEL Routine 10/10/2024 8:48 AM EDT Right hand pain XR HAND 3+ VIEWS RIGHT Routine 9:26 AM EDT Right hand pain XR SHOULDER 2+ VIEWS RIGHT Routine 10/03/2024 9:26 AM EDT Chronic right shoulder pain from Last 3 Months Results * Pathologist Review Immunofixation (11/13/2024 4:33 PM EDT) Pathologist Interpretation 11/18/2024 10:45 AM EDT [facility] Blood Venous blood specimen / Unknown Venipuncture / Unknown 11/13/2024 4:33 PM EDT 11/13/2024 4:33 PM EDT Divina Hoffman MD LAB BLOOD ORDERABLES Final Res ult [facility] [address] [place] [address], [place] [phone] * (ABNORMAL) Urinalysis with reflex microscopic and culture (11/13/2024 4:33 PM EDT) Specific [place] Urine 1.025 1.003 - 1.030 LAB URINALYSIS - AUTOMATED METHOD 11/13/2024 7:46 PM EDT [facility] pH, Urine 6.0 5.0 - 8.0 pH LAB URINALYSIS - AUTOMATED METHOD 11/13/2024 7:46 PM EDT [facility] Leukocytes, Urine Trace(A) Negative LAB URINALYSIS - AUTOMATED METHOD 11/13/2024 7:46 PM EDT [facility] Nitrite, Urine Negative Negative LAB URINALYSIS - AUTOMATED METHOD 11/13/2024 7:46 PM EDT [facility] Protein, Urine Trace <=Trace mg/dL LAB URINALYSIS - AUTOMATED METHOD 11/13/2024 7:46 PM [facility] Glucose, Urine Negative Negative mg/dL LAB URINALYSIS - AUTOMATED METHOD 11/13/2024 7:46 PM [facility] Ketones, Urine Trace(A) Negative mg/dL LAB URINALYSIS - AUTOMATED METHOD 11/13/2024 7:46 PM [facility] Urobilinogen , Urine 1.0 0.2 - 1.0 mg/dL LAB URINALYSIS - AUTOMATED METHOD 11/13/2024 7:46 PM [facility] Bilirubin, Urine Negative Negative LAB URINALYSIS - AUTOMATED METHOD 11/13/2024 7:46 PM [facility] Blood, Urine Negative Negative LAB URINALYSIS - AUTOMATED METHOD 11/13/2024 7:46 PM [facility] RBC, Urine 4.0 0 - 4 /HPF LAB URINALYSIS - AUTOMATED METHOD 11/13/2024 7:46 PM [facility] WBC, Urine 5.8(H) 0 - 4 /HPF LAB URINALYSIS - AUTOMATED METHOD 11/13/2024 7:46 PM [facility] Squamous Epithelial, Urine >100(H) 0 - 60 /LPF LAB URINALYSIS - AUTOMATED METHOD 11/13/2024 7:46 PM [facility] Crystals, Urine Heavy Amorphous Urate crystals. /LPF 11/13/2024 7:46 PM [facility] Bacteria, Urine Few(A) Negative /HPF LAB URINALYSIS - AUTOMATED METHOD 11/13/2024 7:46 PM [facility] Hyaline Casts, Urine 0 0 - 3 /LPF LAB URINALYSIS - AUTOMATED METHOD 11/13/2024 7:46 PM [facility] Urine Urine specimen obtained by clean catch procedure / Unknown Non-blood Collection / Unknown 11/13/2024 4:33 PM EDT 11/13/2024 4:33 PM EDT Shailesh Ferrell MD LAB URINE ORDERABLES Final Resul t Performing Organization Address [facility] Co de Phone Number [facility] [address] [place] [address], [place] [phone] * PATHOLOGIST REVIEW PROTEIN ELECTROPHORESIS (11/13/2024 4:33 PM EDT) Pathologist Interpretation 11/18/2024 6:13 PM EDT [facility] Blood Venous blood specimen / Unknown Venipuncture / Unknown 11/13/2024 4:33 PM EDT 11/13/2024 4:33 PM EDT Divina Hoffman MD LAB BLOOD ORDERABLES Final Res ult Performing Organization Address [facility] de Phone Number [facility] [address] [place] [address], [place] [phone] * Tam urine culture tube (11/13/2024 4:33 PM EDT) Pathologist [facility] Extra Tube Hold for add-ons. 11/13/2024 7:01 PM EDT [facility] Comment:Auto resulted. Urine Urine specimen obtained by clean catch procedure / Unknown Non-blood Collection / Unknown 11/13/2024 4:33 PM EDT 11/13/2024 4:33 PM EDT Shailesh Ferrell MD LAB URINE ORDERABLES Final Resul t Performing Organization Address [facility] Co de Phone Number [facility] [address] [place] [address], [place] [phone] * [place]-lambda free light chains, quantitative (11/13/2024 4:33 PM EDT) [place] Free Light Chain 0.96 0.33 - 1.94 mg/dL 11/17/2024 1:58 PM EDT [facility] Lambda Free Light Chain 0.79 0.57 - 2.63 mg/dL 11/17/2024 1:58 PM EDT [facility] [place]/Lambda FLC Ratio 1.22 0.26 - 1.65 11/17/2024 1:58 PM EDT [facility] Comment: Test performed at [facility], [email or web address] [place] [address] Ivy Mendoza MD, PhD - Feed Adviser Blood Venous blood specimen / Unknown Venipuncture / Unknown 11/13/2024 4:33 PM EDT 11/13/2024 4:33 PM EDT us Divina Hoffman MD LAB BLOOD ORDERABLES Final Res ult Performing Organization Address City/[facility]/ZIP Co de Phone Number [facility] [address] [place] [address] * Cyclic citrullinated peptide, IgG and IgA (11/13/2024 4:33 PM EDT) [facility] CCP AB Quant 6 <20 Units LAB CHEMISTRY METHOD 11/18/2024 11:00 AM EDT [facility] Cyclic Citrullinated Peptide (CCP) Antibody Negative Negative LAB CHEMISTRY METHOD 11/18/2024 11:00 AM EDT [facility] Blood Venous blood specimen / Unknown Venipuncture / Unknown 11/13/2024 4:33 PM EDT 11/13/2024 4:33 PM EDT us Divina Hoffman MD LAB BLOOD ORDERABLES Final Res ult [facility] [address] [place] [address], * Sedimentation rate (11/13/2024 4:33 PM EDT) Only the most recent of2 resultswithin the time period is included. Pathologist [facility] Sed Rate 3 0 - 20 mm/hr LAB HEMETOLOGY METHOD 11/13/2024 6:43 PM EDT [facility] Blood Venous blood specimen / Unknown Venipuncture / Unknown 11/13/2024 4:33 PM EDT 11/13/2024 4:33 PM EDT Divina Hoffman MD LAB BLOOD ORDERABLES Final Res ult Performing Organization Address City/[facility]/ZIP Co de Phone Number [facility] [address] [place] [address], [place] [phone] * Culture urine (11/13/2024 4:33 PM EDT) [facility] Culture, Urine 10,000-49,000 CFU/mL Mixed urogenital beverly, no uropathogens present. Suggest repeat specimen if clinically indicated. 11/15/2024 9:01 AM EDT [facility] Urine Urine specimen obtained by clean catch procedure / Unknown Non-blood Collection / Unknown 11/13/2024 4:33 PM EDT 11/13/2024 7:46 PM EDT Shailesh Ferrell MD LAB MICROBIOLOGY - GENERAL ORDER MANISH Final Result Performing Organization Address City/[facility]/ZIP Co de Phone Number [facility] [address] [place] [address], [place] [phone] * Immunofixation electrophoresis serum (11/13/2024 4:33 PM EDT) [facility] Immunofixation Result, Serum No monoclonal immunoglobulins detected. LAB CHEMISTRY METHOD 11/18/2024 10:45 AM EDT [facility] Blood Venous blood specimen / Unknown Venipuncture / Unknown 11/13/2024 4:33 PM EDT 11/13/2024 4:33 PM EDT us Divina Hoffman MD LAB BLOOD ORDERABLES Final Res ult Performing Organization Address City/[facility]/ZIP Co de Phone Number [facility] [address] [place] [address], [place] [phone] * Immunoglobulins IgG, IgA, IgM (11/13/2024 4:33 PM EDT) Total IgG 991 549 - 1,584 mg/dL LAB CHEMISTRY METHOD 11/13/2024 7:25 PM EDT [facility] IgA 113 61 - 348 mg/dL LAB CHEMISTRY METHOD 11/13/2024 7:25 PM EDT [facility] IgM 144 23 - 259 mg/dL LAB CHEMISTRY METHOD 11/13/2024 7:25 PM EDT [facility] Blood Venous blood specimen / Unknown Venipuncture / Unknown 11/13/2024 4:33 PM EDT 11/13/2024 4:33 PM EDT us Divina Hoffman MD LAB BLOOD ORDERABLES Final Res ult Performing Organization Address [facility] Co de Phone Number [facility] [address] [place] [address], [place] [phone] * C-reactive protein (11/13/2024 4:33 PM EDT) Only the most recent of2 resultswithin the time period is included. C-Reactive Protein <0.29 <=0.50 mg/dL LAB CHEMISTRY METHOD 11/13/2024 7:17 PM EDT [facility] Blood Venous blood specimen / Unknown Venipuncture / Unknown 11/13/2024 4:33 PM EDT 11/13/2024 4:33 PM EDT us Divina Hoffman MD LAB BLOOD ORDERABLES Final Res ult Performing Organization Address City/[facility]/ZIP Co de Phone Number [facility] [address] [place] [address], [place] [phone] * (ABNORMAL) Uric acid (11/13/2024 4:33 PM EDT) Only the most recent of2 resultswithin the time period is included. Pathologist [facility] Uric Acid 1.7(L) 3.1 - 7.8 mg/dL LAB CHEMISTRY METHOD 11/13/2024 7:24 PM EDT [facility] Blood Venous blood specimen / Unknown Venipuncture / Unknown 11/13/2024 4:33 PM EDT 11/13/2024 4:33 PM EDT Divina Hoffman MD LAB BLOOD ORDERABLES Final Res ult [facility] [address] [place] [address], [place] [phone] * Protein electrophoresis, serum (11/13/2024 4:33 PM EDT) [facility] Total Protein 7.1 6.0 - 8.0 g/dL LAB CHEMISTRY METHOD 11/18/2024 6:13 PM EDT [facility] Albumin, Serum 4.0 2.9 - 4.1 g/dL LAB CHEMISTRY METHOD 11/18/2024 6:13 PM EDT [facility] Alpha 1 Globulin (g/dL) 0.3 0.1 - 0.5 g/dL LAB CHEMISTRY METHOD 11/18/2024 6:13 PM EDT [facility] Alpha 2 Globulin (g/dL) 0.9 0.7 - 1.5 g/dL LAB CHEMISTRY METHOD 11/18/2024 6:13 PM EDT [facility] Beta (g/dL) 1.0 0.7 - 1.5 g/dL LAB CHEMISTRY METHOD 11/18/2024 6:13 PM EDT [facility] Gamma Globulin (g/dL) 1.0 0.7 - 1.9 g/dL LAB CHEMISTRY METHOD 11/18/2024 6:13 PM EDT [facility] SPEP Interpretation No M-Vincent seen. Essentially normal pattern. LAB CHEMISTRY METHOD 11/18/2024 6:13 PM EDT [facility] Blood Venous blood specimen / Unknown Venipuncture / Unknown 11/13/2024 4:33 PM EDT 11/13/2024 4:33 PM EDT us Divina Hoffman MD LAB BLOOD ORDERABLES Final Res ult Performing Organization Address [facility]/ZIP Co de Phone Number [facility] [address] [place] [address], [place] [phone] * Protein, total (11/13/2024 4:33 PM EDT) [facility] Total Protein 7.1 6.0 - 8.0 g/dL LAB CHEMISTRY METHOD 11/13/2024 7:14 PM EDT [facility] Blood Venous blood specimen / Unknown Venipuncture / Unknown 11/13/2024 4:33 PM EDT 11/13/2024 4:33 PM EDT us Divina Hoffman MD LAB BLOOD ORDERABLES Final Res ult Performing Organization Address City/[facility]/ZIP Co de Phone Number [facility] [address] [place] [address], [place] [phone] * Interferon gamma interpretation (10/24/2024 9:30 AM EDT) Quantiferon Plus Interpretation Negative Negative LAB CHEMISTRY METHOD 10/25/2024 1:26 PM EDT [facility] Blood Venous blood specimen / Unknown Venipuncture / Unknown 10/24/2024 9:30 AM EDT 10/24/2024 9:30 AM EDT us Edy Kwan MD LAB BLOOD ORDERABLES Final Resul t Performing Organization Address [facility] Co de Phone Number [facility] [address] [place] [address], [place] [phone] * Interferon gamma antigen 2 (10/24/2024 9:30 AM EDT) Blood Venous blood specimen / Unknown Venipuncture / Unknown 10/24/2024 9:30 AM EDT 10/24/2024 9:30 AM EDT us Edy Kwan MD LAB BLOOD ORDERABLES Final Resul t Performing Organization Address [facility] de Phone Number [facility] [address] [place] [address], [place] [phone] * Interferon gamma antigen 1 (10/24/2024 9:30 AM EDT) Blood Venous blood specimen / Unknown Venipuncture / Unknown 10/24/2024 9:30 AM EDT 10/24/2024 9:30 AM EDT us Edy Kwan MD LAB BLOOD ORDERABLES Final Resul t Performing Organization Address [facility] de Phone Number [facility] [address] [place] [address], [place] [phone] * Interferon gamma mitogen (10/24/2024 9:30 AM EDT) Blood Venous blood specimen / Unknown Venipuncture / Unknown 10/24/2024 9:30 AM EDT 10/24/2024 9:30 AM EDT us Edy Kwan MD LAB BLOOD ORDERABLES Final Resul t Performing Organization Address [facility] Co de Phone Number [facility] [address] [place] [address], [place] [phone] * Interferon gamma NIL (10/24/2024 9:30 AM EDT) Blood Venous blood specimen / Unknown Venipuncture / Unknown 10/24/2024 9:30 AM EDT 10/24/2024 9:30 AM EDT Edy Kwan MD LAB BLOOD ORDERABLES Final Resul t Performing Organization Address [facility]/ZIP Co de Phone Number [facility] [address] [place] [address], [place] [phone] * Thyroid stimulating hormone with reflex to free t4 and free t3 (10/24/2024 9:30 AM EDT) TSH 1.16 0.40 - 4.00 mcIU/mL LAB CHEMISTRY METHOD 10/24/2024 2:33 PM EDT [facility] Blood Venous blood specimen / Unknown Venipuncture / Unknown 10/24/2024 9:30 AM EDT 10/24/2024 9:30 AM EDT Shailesh Ferrell MD LAB BLOOD ORDERABLES Final Resul t Performing Organization Address [facility]/ZIP Co de Phone Number [facility] [address] [place] [address], [place] [phone] * CBC auto differential (10/10/2024 8:48 AM EDT) WBC 7.1 4.8 - 10.8 K/mcL LAB HEMETOLOGY METHOD 10/10/2024 10:35 AM EDT [facility] RBC 4.50 3.80 - 4.80 M/mcL LAB HEMETOLOGY METHOD 10/10/2024 10:35 AM EDT [facility] Hemoglobin 13.3 11.5 - 16.0 g/dL LAB HEMETOLOGY METHOD 10/10/2024 10:35 AM EDT [facility] Hematocrit 40.2 35.0 - 47.0 % LAB HEMETOLOGY METHOD 10/10/2024 10:35 AM EDT [facility] MCV 88.7 79.0 - 98.0 FL LAB HEMETOLOGY METHOD 10/10/2024 10:35 AM EDT [facility] MCH 29.4 27.0 - 32.0 pcg LAB HEMETOLOGY METHOD 10/10/2024 10:35 AM [facility] MCHC 33.1 32.0 - 37.0 g/dL LAB HEMETOLOGY METHOD 10/10/2024 10:35 AM EDT [facility] RDW 12.4 11.0 - 15.0 % LAB HEMETOLOGY METHOD 10/10/2024 10:35 AM T [facility] Platelets 227 130 - 400 K/mcL LAB HEMETOLOGY METHOD 10/10/2024 10:35 AM [facility] MPV 10.4 7.0 - 11.0 FL LAB HEMETOLOGY METHOD 10/10/2024 10:35 AM [facility] NRBC 0.0 <1.0 % LAB HEMETOLOGY METHOD 10/10/2024 10:35 AM [facility] NRBC Absolute 0.00 <0.10 K/mcL LAB HEMETOLOGY METHOD 10/10/2024 10:35 AM [facility] Neutrophils Relative 70.2 % LAB HEMETOLOGY METHOD 10/10/2024 10:35 AM [facility] Lymphocytes Relative 22.2 % LAB HEMETOLOGY METHOD 10/10/2024 10:35 AM [facility] Monocytes Relative 5.5 % LAB HEMETOLOGY METHOD 10/10/2024 10:35 AM [facility] Eosinophils Relative 1.1 % LAB HEMETOLOGY METHOD 10/10/2024 10:35 AM [facility] Basophils Relative 0.6 % LAB HEMETOLOGY METHOD 10/10/2024 10:35 AM [facility] Immature Granulocytes Relative 0.4 % LAB HEMETOLOGY METHOD 10/10/2024 10:35 AM EDT [facility] Neutrophils Absolute 4.99 1.50 - 7.00 K/[facility] LAB HEMETOLOGY METHOD 10/10/2024 10:35 AM EDT [facility] Lymphocytes Absolute 1.58 1.00 - 5.00 K/[facility] LAB HEMETOLOGY METHOD 10/10/2024 10:35 AM EDT [facility] Monocytes Absolute 0.39 0.20 - 1.00 K/[facility] LAB HEMETOLOGY METHOD 10/10/2024 10:35 AM EDT [facility] Eosinophils Absolute 0.08 0.00 - 0.50 K/[facility] LAB HEMETOLOGY METHOD 10/10/2024 10:35 AM EDT [facility] Basophils Absolute 0.04 0.00 - 0.20 K/mcL LAB HEMETOLOGY METHOD 10/10/2024 10:35 AM EDT [facility] Immature Granulocytes Absolute 0.03 0.00 - 0.03 K/mcL LAB HEMETOLOGY METHOD 10/10/2024 10:35 AM EDT [facility] Blood Venous blood specimen / Unknown Venipuncture / Unknown 10/10/2024 8:48 AM EDT 10/10/2024 8:49 AM EDT us Lee Ann PALMER LAB BLOOD ORDERABLES Final Resu lt [facility] [address] [place] [address], * Rheumatoid factor (10/10/2024 8:48 AM EDT) Rheumatoid Factor <10.0 <15.0 I Unit/mL LAB CHEMISTRY METHOD 10/10/2024 11:02 AM EDT [facility] Blood Venous blood specimen / Unknown Venipuncture / Unknown 10/10/2024 8:48 AM EDT 10/10/2024 8:49 AM EDT Lee Ann PALMER LAB BLOOD ORDERABLES Final Resu lt [facility] [address] [place] [address], * Basic metabolic panel (10/10/2024 8:48 AM EDT) Sodium 136 133 - 145 mmol/L LAB CHEMISTRY METHOD 10/10/2024 10:59 AM [facility] Potassium 4.2 3.5 - 5.5 mmol/L LAB CHEMISTRY METHOD 10/10/2024 10:59 AM [facility] Chloride 106 96 - 110 mmol/L LAB CHEMISTRY METHOD 10/10/2024 10:59 AM [facility] CO2 22 21 - 32 mmol/L LAB CHEMISTRY METHOD 10/10/2024 10:59 AM [facility] Anion Gap 8 3 - 11 LAB CHEMISTRY METHOD 10/10/2024 10:59 AM [facility] Glucose 80 70 - 100 mg/dL LAB CHEMISTRY METHOD 10/10/2024 10:59 AM [facility] BUN 10 5 - 25 mg/dL LAB CHEMISTRY METHOD 10/10/2024 10:59 AM [facility] Creatinine 0.65 0.50 - 1.10 mg/dL LAB CHEMISTRY METHOD 10/10/2024 10:59 AM [facility] eGFR 116 >=60 mL/min/1. 73m2 LAB CHEMISTRY METHOD 10/10/2024 10:59 AM [facility] Comment:Calculation based on the Chronic Kidney Disease Epidemiology Collaboration (CKD-EPI) equation refit without adjustment for race. BUN/Creatinine Ratio 15.4 LAB CHEMISTRY METHOD 10/10/2024 10:59 AM EDT [facility] Calcium 9.1 8.5 - 10.5 mg/dL LAB CHEMISTRY METHOD 10/10/2024 10:59 AM EDT [facility] Blood Venous blood specimen / Unknown Venipuncture / Unknown 10/10/2024 8:48 AM EDT 10/10/2024 8:49 AM EDT Lee Ann PALMER LAB BLOOD ORDERABLES Final Resu lt [facility] [address] [place] [address], * XR Hand 3+ Views Right (10/03/2024 9:26 AM EDT) Anatomical Region Laterality Modality Upper Extremities, Hand Right Radiogra phic Imaging 10/03/2024 9:44 AM EDT Impressions 10/03/2024 9:50 AM EDT Imaging obtained with flexion at the MCP joints and superimposition of some of the anatomy limits assessment. There is periarticular demineralization with joint space narrowing involving the IP joints with some periarticular erosive changes. The pattern could reflect synovitis. Rheumatoid is not excluded. The pattern is not typical for osteoarthritis. -------- FINAL REPORT -------- Dictated By: Marcin Savage Dictated Date: 10/03/2024 09:44 ET Assigned Physician: Marcin Savage Reviewed and Electronically Signed By: Marcin Savage Signed Date: 10/03/2024 09:50 ET Workstation ID: [id number] Transcribed By: Self Edit Transcribed Date: 10/03/2024 09:44 ET Narrative 10/03/2024 9:50 AM EDT EXAMINATION: RIGHT HAND CLINICAL INFORMATION: Chronic hand pain. Rheumatoid suspected. COMPARISON: None. TECHNIQUE: 3 views of the right hand FINDINGS: Images obtained with flexion at the MCP joints. There is no acute fracture or subluxation. No suspicious focal bony lesion. No aggressive periosteal new bone formation. MINERALIZATION: Regional demineralization greatest in the periarticular regions ALIGNMENT: As described images are obtained with flexion at the MCP joints which limits assessment SOFT TISSUE CALCIFICATIONS: None. JOINT SPACES: There is some narrowing of the PIP and DIP joints which is moderately severe. Difficult to assess the MCP joints. Difficult to assess the carpal metacarpal joints. OSTEOPHYTES: No large osteophytes CYSTS/EROSIONS: There are equivocal periarticular erosions involving the DIP joints. SOFT TISSUE SWELLING: None. OTHER: None. Procedure Note Marcin Savage MD - 10/03/2024 EXAMINATION: RIGHT HAND CLINICAL INFORMATION: Chronic hand pain. Rheumatoid suspected. COMPARISON: None. TECHNIQUE: 3 views of the right hand FINDINGS: Images obtained with flexion at the MCP joints. There is no acute fracture or subluxation. No suspicious focal bonylesion. No aggressive periosteal new bone formation. MINERALIZATION: Regional demineralization greatest in the periarticularregions ALIGNMENT: As described images are obtained with flexion at the MCP jointswhich limits assessment SOFT TISSUE CALCIFICATIONS: None. JOINT SPACES: There is some narrowing of the PIP and DIP joints which ismoderately severe. Difficult to assess the MCP joints. Difficult to assessthe carpal metacarpal joints. OSTEOPHYTES: No large osteophytes CYSTS/EROSIONS: There are equivocal periarticular erosions involving theDIP joints. SOFT TISSUE SWELLING: None. OTHER: None. IMPRESSION: Imaging obtained with flexion at the MCP joints and superimposition ofsome of the anatomy limits assessment. There is periarticular demineralization with joint space narrowinginvolving the IP joints with some periarticular erosive changes. The pattern could reflect synovitis. Rheumatoid is not excluded. The pattern is not typical for osteoarthritis. -------- FINAL REPORT -------- Dictated By: Marcin Savage Dictated Date: 10/03/2024 09:44 ET Assigned Physician: Marcin Savage Reviewed and Electronically Signed By: Marcin Savage Signed Date: 10/03/2024 09:50 ET Workstation ID: [id number] Transcribed By: Self Edit Transcribed Date: 10/03/2024 09:44 ET us Jay Heck NP IMG XR PROCEDURES Final Result * XR Shoulder 2+ Views Right (10/03/2024 9:26 AM EDT) Anatomical Region Laterality Modality Upper Extremities, Shoulder Right Radi ographic Imaging 10/03/2024 9:50 AM EDT Impressions 10/03/2024 9:52 AM EDT No acute abnormality. -------- FINAL REPORT -------- Dictated By: Marcin Savage Dictated Date: 10/03/2024 09:50 ET Assigned Physician: Marcin Savage Reviewed and Electronically Signed By: Marcin Savage Signed Date: 10/03/2024 09:52 ET Workstation ID: [id number] Transcribed By: Self Edit Transcribed Date: 10/03/2024 09:50 ET Narrative 10/03/2024 9:52 AM EDT EXAMINATION: RIGHT SHOULDER CLINICAL INFORMATION: Pain COMPARISON: None. TECHNIQUE: 3 views right shoulder FINDINGS: The alignment is normal. The joint spaces are preserved. There is no fracture or focal lesion or periosteal new bone. No definite cystic or erosive changes. No abnormal soft tissue calcification. No significant osteophyte. No suspicious abnormality in the visualized portions of the chest The acromiohumeral interval is maintained. There is slight lateral downsloping of the acromion. Procedure Note Marcin Savage MD - 10/03/2024 EXAMINATION: RIGHT SHOULDER CLINICAL INFORMATION: Pain COMPARISON: None. TECHNIQUE: 3 views right shoulder FINDINGS: The alignment is normal. The joint spaces are preserved. There is nofracture or focal lesion or periosteal new bone. No definite cystic or erosive changes. No abnormal soft tissuecalcification. No significant osteophyte. No suspicious abnormality in the visualized portions of the chest The acromiohumeral interval is maintained. There is slight lateraldownsloping of the acromion. IMPRESSION: No acute abnormality. -------- FINAL REPORT -------- Dictated By: Marcin Savage Dictated Date: 10/03/2024 09:50 ET Assigned Physician: Marcin Savage Reviewed and Electronically Signed By: Marcin Savage Signed Date: 10/03/2024 09:52 ET Workstation ID: [id number] Transcribed By: Self Edit Transcribed Date: 10/03/2024 09:50 ET Jay Heck REGULATOR ASSEMBLER IMG XR PROCEDURES Final Result from Last 3 Months Insurance MEDICARE MEDICAID - [place] Care Teams Direct Marketing Executive Relationship Specialty Start Date End Date Shailesh Ferrell MD [address] [place] [address] [address] [place] [address] PCP - General 06/09/22
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
== END 2024-11-25 12:53 | disposition home or self-care (01) ==
LOC: HO.NEURO 12:52
PROVIDERS: PCP Student in an Organized Health Care Education/Training Program; Visit Provider Psychiatry & Neurology Neurology
DX: G93.49 Other encephalopathy (principal)
CPT/HCPCS: 95816

== ENCOUNTER → 2024-11-25 16:24 | Outpatient (BNV) | payer MEDICARE, MEDICAID, SELFPAY | PROVIDERS: PCP Student in an Organized Health Care Education/Training Program; Visit Provider Psychiatry & Neurology Neurology | DX: G93.49 Other encephalopathy (principal) | CPT/HCPCS: 95816 ==

== ENCOUNTER 2024-11-26 07:47 | Outpatient (REF) | payer MEDICARE, MEDICAID, SELFPAY ==
--- OUTSIDE RECORDS SUMMARY | 2024-01-15 07:26 | XMS_ITS | Encounter Summary ---
Author Organization [employer] Address [address] [place] [address] Care Team Providers Care Turbine Assembler Name Role Phone Shailesh Ferrell MD Primary Care Provider [phone] Encounter Details Date Type Department Care Team (Late st Contact Info) Description 01/15/2024 7:26 AM EDT Hospital Encounter TH HISTORIC ENCOUNTERS EASTERN CONVERSION ONLY Karsten King, ESTELA [address] [place] [address] Social History Tobacco Use Types Packs/Day Years [...] for your loved ones. For example, child & adolescent psychiatrist or elderly care for an older adult? [...] 9:00 AM EDT Office Visit Rheumatology - [place] [address] [place] [phone] Divina Hoffman MD [address] [place] [address] 02/13/2025 8:00 AM EST Office Visit Gastroenterology - [place] [address] [facility] [address] [place] [address] Gissell Olivera NP [address] [place] [address] documented as of this encounter Procedures Procedure Name Priority Date/Time Associated Diagnosis Comments CR BARIUM SWALLOW Routine 01/15/2024 1:3 7 PM EDT documented in this encounter Results * CR BARIUM SWALLOW (01/15/2024 1:37 PM EDT) Anatomical Region Laterality Modality Radiographic Danielle ging 01/15/2024 7:32 AM EDT Narrative 01/15/2024 1:37 PM EDT [facility] Diagnostic Imaging Department [address] [place] [address] Patient: MARY GILMAN /Age/Sex: 1985 - 38 - F Unit#: [id number] [facility] Ordering Physician: KARSTEN KING PA-C CR Barium Swallow - 01/15/24 - 0819 Report Status:Signed FINDINGS: Double contrast esophagram performed. Exam is limited due to patient's developmental delay. Patient's check clerk working to get patient to swallow barium with limited success. COMPARISON: Barium swallow December 20, 2017 HISTORY: Patient is a 38-year-old female with history of developmental delay here with her check clerk. Per patient's check clerk, reports gagging with eating. Mixer Machine Feeder radiographs: 1 view chest radiograph demonstrates cardiac [...] to swallow 13 mm barium tablet, as check clerk reports patient typically takes pills with applesauce. [...] Signed by: SANJAY OLEARY Dic Date/Time: 01/15/24 2782 Sign date/Time: 01/15/24 1331 Procedure Note Sanjay Oleary MD - 01/22/2024 [facility] Diagnostic Imaging Department [address] [place] [address] Patient: MARY GILMAN/Age/Sex: 1985 - 38 - F Unit#: [id number] Location/Status: SPDIGEN/REG CLI Mnemonic/Ordering Site: [facility] Ordering Physician: KARSTEN KING PA-C CR Barium Swallow - 01/15/24 - 0819 Report Status:Signed FINDINGS: Double contrast esophagram performed. Exam is limited due topatient's developmental delay. Patient's check clerk working to get patient toswallow barium with limited success. COMPARISON: Barium swallow December 20, 2017 HISTORY: Patient is a 38-year-old female with history of developmentaldelay here with her check clerk. Per patient's check clerk, reports gagging witheating. Mixer Machine Feeder radiographs: 1 view chest radiograph demonstrates cardiac [...] on filedocumented in this encounter Care Teams Turbine Assembler Relationship Specialty Start Date End Date Shailesh Ferrell MD [address] [place] [phone] PCP - General 06/09/22 documented as of this encounter
--- NOTE | ~2024-11-26 | MR_ITS ---
EXAMINATION: MR BRAIN WITHOUT CONTRAST CLINICAL INFORMATION: Hemiplegia, right hemibody. COMPARISON: None available. TECHNIQUE: MRI of the brain was obtained using routine sequences without contrast. FINDINGS: No restricted diffusion. No acute intracranial hemorrhage, mass effect, midline shift, hydrocephalus or herniation. Tam-white matter differentiation is normal. Posterior cranial fossa contents demonstrated no signal abnormality or mass effect. Normal position of the cerebellar tonsils. Sellar/suprasellar region is normal. No signal abnormality or volume loss in the hippocampi. Flow-void signal within the main cerebral vessels is normal. MR/MR head/brain wo con IMPRESSION: No acute or structural brain abnormality. Electronically signed by: oHlland Todd MD 11/26/2024 09:05 AM EDT
--- OUTSIDE RECORDS SUMMARY | 2024-11-26 07:55 | XMS_ITS | Encounter Summary ---
Author Organization [employer] Address [address] [place] [address] Care Team Providers Care Medical Records Manager Name Role Phone Shailesh Ferrell MD Primary Care Provider [phone] Reason for Visit * Reason Onset Date Comments Urinary Frequency 11/12/2024 Patient incont inent Encounter Details Date Type Department Care Team (Late st Contact Info) Description 11/12/2024 Telephone Internal Medicine - [place] 175 [facility] [address] [place] [address] Shailesh Ferrell MD [address] [place] [address] Social History Tobacco Use Types Packs/Day Years [...] care for your loved ones. For example, rn child or elderly care for an older adult? [...] 4:17 PM EDT Call to pt # [phone], spoke to pt mother on VR Ordered [...] 9:00 AM EDT Office Visit Rheumatology - [place] [address] [place] [address] Divina Hoffman MD [address] [place] [address] 02/13/2025 8:00 AM EST Office Visit Gastroenterology - [place] 175 [facility] 175 [facility] [address] [place] [phone] Gissell Olivera NP [address] [place] [address] documented as of this encounter Visit Diagnoses Diagnosis Infective urethritis- Primary documented in this encounter Additional Health Concerns Assessment Noted Time PHQ-9 Depression Total Score: 10 09/10/ 025 9:43 AM EDT A fall risk assessment has been complete d for the patient 10/24/2024 9:03 AM EDT documented as of this encounter Care Teams Medical Records Manager Relationship Specialty Start Date End Date Shailesh Ferrell MD 175 [facility] [address] [place] [phone] PCP - General 06/09/22 documented as of this encounter
--- OUTSIDE RECORDS SUMMARY | 2024-11-26 07:56 | XMS_ITS | Encounter Summary ---
Author Organization [facility] Address [address] [place] [address] Care Team Providers Care Ward Attendant Name Role Phone Shailesh Ferrell MD Primary Care Provider [phone] Encounter Details Date Type Department Care Team (Late st Contact Info) Description 06/23/2024 Nurse Triage Gastroenterology [facility] [address] [address] Karsten Gonzales, ESTELA [address] [place] [phone] Social History Tobacco Use Types Packs/Day Years [...] 11/27/2024 9:00 AM EDT Office Visit Rheumatology [facility] [address] [place] [address] Divina Hoffman MD [address] [place] [address] 02/13/2025 8:00 AM EST Office Visit Gastroenterology [facility] [address] [place] [address] Gissell Olivera, SUSI [address] [place] [address] documented as of this encounter Visit Diagnoses Not on filedocumented in this encounter Care Teams Ward Attendant Relationship Specialty Start Date End Date Shailesh Ferrell MD 175 [facility] [address] [place] [address] PCP - General 06/09/22 documented as of this encounter
--- OUTSIDE RECORDS SUMMARY | 2024-11-26 07:56 | XMS_ITS | Encounter Summary ---
Author Organization [employer] Address [address] [place] [address] Care Team Providers Care Candy Spreader Name Role Phone Shailesh Ferrell MD Primary Care Provider [phone] Encounter Details Date Type Department Care Team ([facility] st Contact Info) Description 10/22/2024 Telephone Orthopedic Surgery [facility] [address] [phone] Lee Ann Curry PA [address] [place] [address] Social History Tobacco Use Types Packs/Day Years [...] for your loved ones. For example, child and family services worker or elderly care for an older adult? [...] Please give her a call when able [phone]. Thanks documented in this encounter Plan of Treatment Upcoming Encounters Date Type Department Care Team (Late st Contact Info) Description 11/27/2024 9:00 AM EDT Office Visit Rheumatology - [place] [address] [place] [address] Divina Hoffman MD [address] [place] [address] 02/13/2025 8:00 AM EST Office Visit Gastroenterology - [place] 175 [facility] 175 [facility] [address] [place] [phone] Gissell Olivera, SUSI [address] [place] [address] documented as of this encounter Visit Diagnoses Not on filedocumented in this encounter Additional Health Concerns Assessment Noted Time PHQ-9 Depression Total Score: 10 025 9:43 AM EDT documented as of this encounter Care Teams Candy Spreader Relationship Specialty Start Date End Date Shailesh Ferrell MD 175 [facility] [address] [place] [address] PCP - General 06/09/22 documented as of this encounter
--- OUTSIDE RECORDS SUMMARY | 2024-11-26 07:56 | XMS_ITS | Clinical Summary ---
Author Organization [facility] Address [address] [place] [address] Phone Care Team Providers Care Greenskeeper Name Role Phone Shailesh Ferrell MD Primary Care Provider [phone] Allergies No known active allergies Medications fluticasone [...] Team Description 11/14/2024 Telephone Internal Medicine - [place] [address] [facility] [address] [place] [address] Shailesh Ferrell MD 11/12/2024 Telephone Internal Medicine - [place] [address] [facility] [facility] [address] [place] [phone] Shailesh Ferrell MD 11/12/2024 Telephone [facility] - [place] [address] [facility] [address] [place] [phone] Clayton Reid MA 11/10/2024 Telephone Internal Medicine - [place] [address] [address] Nora Molina MA 11/03/2024 Telephone Rheumatology - [place] [address] [place] [address] Divina Hoffman MD 10/31/2024 Telephone Internal Medicine - [place] [address] [address] Maribel Sanon MA 10/29/2024 Telephone Internal Medicine [facility] [address] [address] Nroa Molina MA 10/24/2024 9:00 AM EDT Office Visit Internal Medicine [address] [address] Edy Kwan MD Developmental delay disorder (Primary Dx); Rheumatoid arthritis, involving unspecified site, unspecified whether rheumatoid factor present (CMS/[facility] V24, CMS/[facility] V28); Preventative health care 10/23/2024 11:00 AM EDT Consult Rheumatology - [place] [address] [place] [address] Divina Hoffman MD Inflammatory arthritis (Primary Dx); Polyarthralgia; Positive DINAH (antinuclear antibody) 10/22/2024 Telephone Orthopedic Surgery - [place] [address] [address] Lee Ann Curry PA 10/22/2024 Telephone Orthopedic Surgery [facility] [address] [address] Radha Powell 10/22/2024 Telephone Orthopedic Surgery [place] [address] [address] Lee Ann Curry PA 10/21/2024 10:45 AM EDT Telemedicine Internal Medicine [facility] [address] [phone] Mariya Wolf PA Developmental delay disorder (Primary Dx) 10/21/2024 Telephone Internal Medicine - [place] 175 [facility] 200 [place] [address] Shailesh Ferrell MD 10/20/2024 Telephone Orthopedic Surgery [facility] [address] [address] Lee Ann Curry PA 10/14/2024 4:00 PM EDT Telemedicine Internal Medicine - [place] [address] [facility] 200 [place] [address] Shailesh Ferrell MD Abnormal laboratory test result (Primary Dx); Low urine uric acid level; Abnormal finding on imaging 10/14/2024 [place] [facility] [address] [address] Shailesh Ferrell MD 10/13/2024 Telephone Internal Medicine [facility] [address] [address] Shailesh Ferrell MD 10/13/2024 Telephone Orthopedic Surgery [facility] [address] [phone] Apoorva De La Torre 10/09/2024 2:00 PM EDT Consult Orthopedic Surgery [facility] 175 [facility] 140 [place] [address] Lee Ann Curry PA Rheumatoid arthritis involving right hand, unspecified whether rheumatoid factor present (CMS/HCC V24, CMS/HCC V28) (Primary Dx); Right hand pain 10/07/2024 Telephone Internal Medicine [facility] [address] [address] Nora Molina MA 10/03/2024 9:08 AM EDT - 10/03/2024 11:59 PM EDT [facility] Xray [address] [place] [address] Right hand pain Discharge Disposition: Home or Self Care 10/03/2024 9:08 AM EDT - 10/03/2024 11:59 PM EDT Hospital Encounter [facility] Xray [address] [place] [address] Chronic right shoulder pain Discharge Disposition: Home or Self Care 10/03/2024 8:30 AM EDT Office Visit Internal Medicine - [place] [address] [facility] [address] [place] [phone] Jay Heck NP Right hand pain (Primary Dx); Chronic right shoulder pain; Tardive dyskinesia; Developmental delay disorder 09/18/2024 10:40 AM EDT Office Visit Gastroenterology - [place] [address] [facility] 175 [facility] 200 [place] [address] Gissell Olivera NP Gastroesophageal reflux disease without esophagitis (Primary Dx); Dysphagia, unspecified type from Last 3 Months Surgical History Surgery Date Site/Laterality Comments OTHER SURGICAL HISTORY 2003 PROCEDURE: NE RPR INGUN HERNIA SLIDING ANY AGE; COMMENT: [facility], [place] fundoplication for reflux. ESOPHAGOGASTRODUODENOSCOPY 07/19/2017 PROCEDURE: NE EGD TRANSORAL BIOPSY SINGLE/MULTIPLE; COMMENT: Chronic gastritis [...] your loved ones. For example, child care worker or elderly care for an older [...] 9:00 AM EDT Office Visit Rheumatology - [place] [address] [place] [phone] Divina Hoffman MD [address] [place] [address] [place] [address] 02/13/2025 8:00 AM EST Office Visit Gastroenterology - [place] [address] [place] [address] Gissell Olivera, SUSI [address] [place] [address] Health Maintenance Due Date Last Done Comments [...] Procedure Name Priority Date/Time Associated Diagnosis Comments NE PROTEIN ELECTROPHORETIC FRACTIONATION & QUANTITATION SERUM Routine 11/13/2024 4:33 PM EDT Polyarthralgia Low urine uric acid level NE IMMUNOFIXATION ELECTROPHORESIS SERUM Routine 11/13/2024 4:33 PM [...] unspecified site, unspecified whether rheumatoid factor present ([facility] V24, [facility] V28) Preventative health care INTERFERON GAMMA ANTIGEN 2 Routine 10/24/2024 9:30 AM EDT Developmental delay disorder Rheumatoid arthritis, involving unspecified site, unspecified whether rheumatoid factor present ([facility] V24, [facility] V28) Preventative health care INTERFERON GAMMA ANTIGEN 1 Routine 10/24/2024 9:30 AM EDT Developmental delay disorder Rheumatoid arthritis, involving unspecified site, unspecified whether rheumatoid factor present ([facility] V24, [facility] V28) Preventative health care INTERFERON GAMMA MITOGEN Routine 10/24/2024 9:30 AM EDT Developmental delay disorder Rheumatoid arthritis, involving unspecified site, unspecified whether rheumatoid factor present ([facility] V24, [facility] V28) Preventative health care INTERFERON GAMMA NIL Routine 10/24/2024 9:30 AM EDT Developmental delay disorder Rheumatoid arthritis, involving unspecified site, unspecified whether rheumatoid factor present ([facility] V24, [facility] V28) Preventative health care INTERFERON GAMMA FOR TB, QUALITATIVE Routine 10/24/2024 9:30 AM EDT Developmental delay disorder Rheumatoid arthritis, involving unspecified site, unspecified whether rheumatoid factor present ([facility] V24, [facility] V28) Preventative health care THYROID STIMULATING HORMONE [...] EDT) Pathologist Interpretation 11/18/2024 10:45 AM EDT [facility] Blood Venous blood specimen / Unknown Venipuncture / Unknown 11/13/2024 4:33 PM EDT 11/13/2024 4:33 PM EDT Divina Hoffman MD LAB BLOOD ORDERABLES Final Res ult [facility] [address] [place] [address], [place] [phone] * (ABNORMAL) Urinalysis with reflex microscopic and culture (11/13/2024 4:33 PM EDT) Specific [place] Urine 1.025 1.003 - 1.030 LAB URINALYSIS - AUTOMATED METHOD 11/13/2024 7:46 PM EDT [facility] pH, Urine 6.0 5.0 - 8.0 pH LAB URINALYSIS - AUTOMATED METHOD 11/13/2024 7:46 PM EDT [facility] Leukocytes, Urine Trace(A) Negative LAB URINALYSIS - AUTOMATED METHOD 11/13/2024 7:46 PM EDT [facility] Nitrite, Urine Negative Negative LAB URINALYSIS - AUTOMATED METHOD 11/13/2024 7:46 PM EDT [facility] Protein, Urine Trace <=Trace mg/dL LAB URINALYSIS - AUTOMATED METHOD 11/13/2024 7:46 PM [facility] Glucose, Urine Negative Negative mg/dL LAB URINALYSIS - AUTOMATED METHOD 11/13/2024 7:46 PM [facility] Ketones, Urine Trace(A) Negative mg/dL LAB URINALYSIS - AUTOMATED METHOD 11/13/2024 7:46 PM [facility] Urobilinogen , Urine 1.0 0.2 - 1.0 mg/dL LAB URINALYSIS - AUTOMATED METHOD 11/13/2024 7:46 PM [facility] Bilirubin, Urine Negative Negative LAB URINALYSIS - AUTOMATED METHOD 11/13/2024 7:46 PM [facility] Blood, Urine Negative Negative LAB URINALYSIS - AUTOMATED METHOD 11/13/2024 7:46 PM [facility] RBC, Urine 4.0 0 - 4 /HPF LAB URINALYSIS - AUTOMATED METHOD 11/13/2024 7:46 PM [facility] WBC, Urine 5.8(H) 0 - 4 /HPF LAB URINALYSIS - AUTOMATED METHOD 11/13/2024 7:46 PM [facility] Squamous Epithelial, Urine >100(H) 0 - 60 /LPF LAB URINALYSIS - AUTOMATED METHOD 11/13/2024 7:46 PM [facility] Crystals, Urine Heavy Amorphous Urate crystals. /LPF 11/13/2024 7:46 PM [facility] Bacteria, Urine Few(A) Negative /HPF LAB URINALYSIS - AUTOMATED METHOD 11/13/2024 7:46 PM [facility] Hyaline Casts, Urine 0 0 - 3 /LPF LAB URINALYSIS - AUTOMATED METHOD 11/13/2024 7:46 PM [facility] Urine Urine specimen obtained by clean catch procedure / Unknown Non-blood Collection / Unknown 11/13/2024 4:33 PM EDT 11/13/2024 4:33 PM EDT Shailesh Ferrell MD LAB URINE ORDERABLES Final Resul t Performing Organization Address [facility] Co de Phone Number [facility] [address] [place] [address], [place] [phone] * PATHOLOGIST REVIEW PROTEIN ELECTROPHORESIS (11/13/2024 4:33 PM EDT) Pathologist Interpretation 11/18/2024 6:13 PM EDT [facility] Blood Venous blood specimen / Unknown Venipuncture / Unknown 11/13/2024 4:33 PM EDT 11/13/2024 4:33 PM EDT Divina Hoffman MD LAB BLOOD ORDERABLES Final Res ult Performing Organization Address [facility] de Phone Number [facility] [address] [place] [address], [place] [phone] * Tam urine culture tube (11/13/2024 4:33 PM EDT) Pathologist [facility] Extra Tube Hold for add-ons. 11/13/2024 7:01 PM EDT [facility] Comment:Auto resulted. Urine Urine specimen obtained by clean catch procedure / Unknown Non-blood Collection / Unknown 11/13/2024 4:33 PM EDT 11/13/2024 4:33 PM EDT Shailesh Ferrell MD LAB URINE ORDERABLES Final Resul t Performing Organization Address [facility] Co de Phone Number [facility] [address] [place] [address], [place] [phone] * [place]-lambda free light chains, quantitative (11/13/2024 4:33 PM EDT) [place] Free Light Chain 0.96 0.33 - 1.94 mg/dL 11/17/2024 1:58 PM EDT [facility] Lambda Free Light Chain 0.79 0.57 - 2.63 mg/dL 11/17/2024 1:58 PM EDT [facility] [place]/Lambda FLC Ratio 1.22 0.26 - 1.65 11/17/2024 1:58 PM EDT [facility] Comment: Test performed at [facility], [address] , [place] [address] Ivy Mendoza MD, PhD - Search Specialist Blood Venous blood specimen / Unknown Venipuncture / Unknown 11/13/2024 4:33 PM EDT 11/13/2024 4:33 PM EDT us Divina Hoffman MD LAB BLOOD ORDERABLES Final Res ult Performing Organization Address City/[facility]/ZIP Co de Phone Number [facility] [address] [place] [address] * Cyclic citrullinated peptide, IgG and IgA (11/13/2024 4:33 PM EDT) [facility] CCP AB Quant 6 <20 Units LAB CHEMISTRY METHOD 11/18/2024 11:00 AM EDT [facility] Cyclic Citrullinated Peptide (CCP) Antibody Negative Negative LAB CHEMISTRY METHOD 11/18/2024 11:00 AM EDT [facility] Blood Venous blood specimen / Unknown Venipuncture / Unknown 11/13/2024 4:33 PM EDT 11/13/2024 4:33 PM EDT us Divina Hoffman MD LAB BLOOD ORDERABLES Final Res ult [facility] [address] [place] [address], * Sedimentation rate (11/13/2024 4:33 PM EDT) Only the most recent of2 resultswithin the time period is included. Pathologist [facility] Sed Rate 3 0 - 20 mm/hr LAB HEMETOLOGY METHOD 11/13/2024 6:43 PM EDT [facility] Blood Venous blood specimen / Unknown Venipuncture / Unknown 11/13/2024 4:33 PM EDT 11/13/2024 4:33 PM EDT Divina Hoffman MD LAB BLOOD ORDERABLES Final Res ult Performing Organization Address City/[facility]/ZIP Co de Phone Number [facility] [address] [place] [address], [place] [phone] * Culture urine (11/13/2024 4:33 PM EDT) [facility] Culture, Urine 10,000-49,000 CFU/mL Mixed urogenital beverly, no uropathogens present. Suggest repeat specimen if clinically indicated. 11/15/2024 9:01 AM EDT [facility] Urine Urine specimen obtained by clean catch procedure / Unknown Non-blood Collection / Unknown 11/13/2024 4:33 PM EDT 11/13/2024 7:46 PM EDT Shailesh Ferrell MD LAB MICROBIOLOGY - GENERAL ORDER MANISH Final Result Performing Organization Address City/[facility]/ZIP Co de Phone Number [facility] [address] [place] [address], [place] [phone] * Immunofixation electrophoresis serum (11/13/2024 4:33 PM EDT) [facility] Immunofixation Result, Serum No monoclonal immunoglobulins detected. LAB CHEMISTRY METHOD 11/18/2024 10:45 AM EDT [facility] Blood Venous blood specimen / Unknown Venipuncture / Unknown 11/13/2024 4:33 PM EDT 11/13/2024 4:33 PM EDT us Divina Hoffman MD LAB BLOOD ORDERABLES Final Res ult Performing Organization Address City/[facility]/ZIP Co de Phone Number [facility] [address] [place] [address], [place] [phone] * Immunoglobulins IgG, IgA, IgM (11/13/2024 4:33 PM EDT) Total IgG 991 549 - 1,584 mg/dL LAB CHEMISTRY METHOD 11/13/2024 7:25 PM EDT [facility] IgA 113 61 - 348 mg/dL LAB CHEMISTRY METHOD 11/13/2024 7:25 PM EDT [facility] IgM 144 23 - 259 mg/dL LAB CHEMISTRY METHOD 11/13/2024 7:25 PM EDT [facility] Blood Venous blood specimen / Unknown Venipuncture / Unknown 11/13/2024 4:33 PM EDT 11/13/2024 4:33 PM EDT us Divina Hoffman MD LAB BLOOD ORDERABLES Final Res ult Performing Organization Address [facility] Co de Phone Number [facility] [address] [place] [address], [place] [phone] * C-reactive protein (11/13/2024 4:33 PM EDT) Only the most recent of2 resultswithin the time period is included. C-Reactive Protein <0.29 <=0.50 mg/dL LAB CHEMISTRY METHOD 11/13/2024 7:17 PM EDT [facility] Blood Venous blood specimen / Unknown Venipuncture / Unknown 11/13/2024 4:33 PM EDT 11/13/2024 4:33 PM EDT us Divina Hoffman MD LAB BLOOD ORDERABLES Final Res ult Performing Organization Address City/[facility]/ZIP Co de Phone Number [facility] [address] [place] [address], [place] [phone] * (ABNORMAL) Uric acid (11/13/2024 4:33 PM EDT) Only the most recent of2 resultswithin the time period is included. Pathologist [facility] Uric Acid 1.7(L) 3.1 - 7.8 mg/dL LAB CHEMISTRY METHOD 11/13/2024 7:24 PM EDT [facility] Blood Venous blood specimen / Unknown Venipuncture / Unknown 11/13/2024 4:33 PM EDT 11/13/2024 4:33 PM EDT Divina Hoffman MD LAB BLOOD ORDERABLES Final Res ult [facility] [address] [place] [address], [place] [phone] * Protein electrophoresis, serum (11/13/2024 4:33 PM EDT) [facility] Total Protein 7.1 6.0 - 8.0 g/dL LAB CHEMISTRY METHOD 11/18/2024 6:13 PM EDT [facility] Albumin, Serum 4.0 2.9 - 4.1 g/dL LAB CHEMISTRY METHOD 11/18/2024 6:13 PM EDT [facility] Alpha 1 Globulin (g/dL) 0.3 0.1 - 0.5 g/dL LAB CHEMISTRY METHOD 11/18/2024 6:13 PM EDT [facility] Alpha 2 Globulin (g/dL) 0.9 0.7 - 1.5 g/dL LAB CHEMISTRY METHOD 11/18/2024 6:13 PM EDT [facility] Beta (g/dL) 1.0 0.7 - 1.5 g/dL LAB CHEMISTRY METHOD 11/18/2024 6:13 PM EDT [facility] Gamma Globulin (g/dL) 1.0 0.7 - 1.9 g/dL LAB CHEMISTRY METHOD 11/18/2024 6:13 PM EDT [facility] SPEP Interpretation No M-Vincent seen. Essentially normal pattern. LAB CHEMISTRY METHOD 11/18/2024 6:13 PM EDT [facility] Blood Venous blood specimen / Unknown Venipuncture / Unknown 11/13/2024 4:33 PM EDT 11/13/2024 4:33 PM EDT us Divina Hoffman MD LAB BLOOD ORDERABLES Final Res ult Performing Organization Address [facility]/ZIP Co de Phone Number [facility] [address] [place] [address], [place] [phone] * Protein, total (11/13/2024 4:33 PM EDT) [facility] Total Protein 7.1 6.0 - 8.0 g/dL LAB CHEMISTRY METHOD 11/13/2024 7:14 PM EDT [facility] Blood Venous blood specimen / Unknown Venipuncture / Unknown 11/13/2024 4:33 PM EDT 11/13/2024 4:33 PM EDT us Divina Hoffman MD LAB BLOOD ORDERABLES Final Res ult Performing Organization Address City/[facility]/ZIP Co de Phone Number [facility] [address] [place] [address], [place] [phone] * Interferon gamma interpretation (10/24/2024 9:30 AM EDT) Quantiferon Plus Interpretation Negative Negative LAB CHEMISTRY METHOD 10/25/2024 1:26 PM EDT [facility] Blood Venous blood specimen / Unknown Venipuncture / Unknown 10/24/2024 9:30 AM EDT 10/24/2024 9:30 AM EDT us Edy Kwan MD LAB BLOOD ORDERABLES Final Resul t Performing Organization Address [facility] Co de Phone Number [facility] [address] [place] [address], [place] [phone] * Interferon gamma antigen 2 (10/24/2024 9:30 AM EDT) Blood Venous blood specimen / Unknown Venipuncture / Unknown 10/24/2024 9:30 AM EDT 10/24/2024 9:30 AM EDT us Edy Kwan MD LAB BLOOD ORDERABLES Final Resul t Performing Organization Address [facility] de Phone Number [facility] [address] [place] [address], [place] [phone] * Interferon gamma antigen 1 (10/24/2024 9:30 AM EDT) Blood Venous blood specimen / Unknown Venipuncture / Unknown 10/24/2024 9:30 AM EDT 10/24/2024 9:30 AM EDT us Edy Kwan MD LAB BLOOD ORDERABLES Final Resul t Performing Organization Address [facility] de Phone Number [facility] [address] [place] [address], [place] [phone] * Interferon gamma mitogen (10/24/2024 9:30 AM EDT) Blood Venous blood specimen / Unknown Venipuncture / Unknown 10/24/2024 9:30 AM EDT 10/24/2024 9:30 AM EDT us Edy Kwan MD LAB BLOOD ORDERABLES Final Resul t Performing Organization Address [facility] Co de Phone Number [facility] [address] [place] [address], [place] [phone] * Interferon gamma NIL (10/24/2024 9:30 AM EDT) Blood Venous blood specimen / Unknown Venipuncture / Unknown 10/24/2024 9:30 AM EDT 10/24/2024 9:30 AM EDT Edy Kwan MD LAB BLOOD ORDERABLES Final Resul t Performing Organization Address [facility]/ZIP Co de Phone Number [facility] [address] [place] [address], [place] [phone] * Thyroid stimulating hormone with reflex to free t4 and free t3 (10/24/2024 9:30 AM EDT) TSH 1.16 0.40 - 4.00 mcIU/mL LAB CHEMISTRY METHOD 10/24/2024 2:33 PM EDT [facility] Blood Venous blood specimen / Unknown Venipuncture / Unknown 10/24/2024 9:30 AM EDT 10/24/2024 9:30 AM EDT Shailesh Ferrell MD LAB BLOOD ORDERABLES Final Resul t Performing Organization Address [facility]/ZIP Co de Phone Number [facility] [address] [place] [address], [place] [phone] * CBC auto differential (10/10/2024 8:48 AM EDT) WBC 7.1 4.8 - 10.8 K/mcL LAB HEMETOLOGY METHOD 10/10/2024 10:35 AM EDT [facility] RBC 4.50 3.80 - 4.80 M/mcL LAB HEMETOLOGY METHOD 10/10/2024 10:35 AM EDT [facility] Hemoglobin 13.3 11.5 - 16.0 g/dL LAB HEMETOLOGY METHOD 10/10/2024 10:35 AM EDT [facility] Hematocrit 40.2 35.0 - 47.0 % LAB HEMETOLOGY METHOD 10/10/2024 10:35 AM EDT [facility] MCV 88.7 79.0 - 98.0 FL LAB HEMETOLOGY METHOD 10/10/2024 10:35 AM EDT [facility] MCH 29.4 27.0 - 32.0 pcg LAB HEMETOLOGY METHOD 10/10/2024 10:35 AM [facility] MCHC 33.1 32.0 - 37.0 g/dL LAB HEMETOLOGY METHOD 10/10/2024 10:35 AM EDT [facility] RDW 12.4 11.0 - 15.0 % LAB HEMETOLOGY METHOD 10/10/2024 10:35 AM T [facility] Platelets 227 130 - 400 K/mcL LAB HEMETOLOGY METHOD 10/10/2024 10:35 AM [facility] MPV 10.4 7.0 - 11.0 FL LAB HEMETOLOGY METHOD 10/10/2024 10:35 AM [facility] NRBC 0.0 <1.0 % LAB HEMETOLOGY METHOD 10/10/2024 10:35 AM [facility] NRBC Absolute 0.00 <0.10 K/mcL LAB HEMETOLOGY METHOD 10/10/2024 10:35 AM [facility] Neutrophils Relative 70.2 % LAB HEMETOLOGY METHOD 10/10/2024 10:35 AM [facility] Lymphocytes Relative 22.2 % LAB HEMETOLOGY METHOD 10/10/2024 10:35 AM [facility] Monocytes Relative 5.5 % LAB HEMETOLOGY METHOD 10/10/2024 10:35 AM [facility] Eosinophils Relative 1.1 % LAB HEMETOLOGY METHOD 10/10/2024 10:35 AM [facility] Basophils Relative 0.6 % LAB HEMETOLOGY METHOD 10/10/2024 10:35 AM [facility] Immature Granulocytes Relative 0.4 % LAB HEMETOLOGY METHOD 10/10/2024 10:35 AM EDT [facility] Neutrophils Absolute 4.99 1.50 - 7.00 K/[facility] LAB HEMETOLOGY METHOD 10/10/2024 10:35 AM EDT [facility] Lymphocytes Absolute 1.58 1.00 - 5.00 K/[facility] LAB HEMETOLOGY METHOD 10/10/2024 10:35 AM EDT [facility] Monocytes Absolute 0.39 0.20 - 1.00 K/[facility] LAB HEMETOLOGY METHOD 10/10/2024 10:35 AM EDT [facility] Eosinophils Absolute 0.08 0.00 - 0.50 K/[facility] LAB HEMETOLOGY METHOD 10/10/2024 10:35 AM EDT [facility] Basophils Absolute 0.04 0.00 - 0.20 K/mcL LAB HEMETOLOGY METHOD 10/10/2024 10:35 AM EDT [facility] Immature Granulocytes Absolute 0.03 0.00 - 0.03 K/mcL LAB HEMETOLOGY METHOD 10/10/2024 10:35 AM EDT [facility] Blood Venous blood specimen / Unknown Venipuncture / Unknown 10/10/2024 8:48 AM EDT 10/10/2024 8:49 AM EDT us Lee Ann PALMER LAB BLOOD ORDERABLES Final Resu lt [facility] [address] [place] [address], * Rheumatoid factor (10/10/2024 8:48 AM EDT) Rheumatoid Factor <10.0 <15.0 I Unit/mL LAB CHEMISTRY METHOD 10/10/2024 11:02 AM EDT [facility] Blood Venous blood specimen / Unknown Venipuncture / Unknown 10/10/2024 8:48 AM EDT 10/10/2024 8:49 AM EDT Lee Ann PALMER LAB BLOOD ORDERABLES Final Resu lt [facility] [address] [place] [address], * Basic metabolic panel (10/10/2024 8:48 AM EDT) Sodium 136 133 - 145 mmol/L LAB CHEMISTRY METHOD 10/10/2024 10:59 AM [facility] Potassium 4.2 3.5 - 5.5 mmol/L LAB CHEMISTRY METHOD 10/10/2024 10:59 AM [facility] Chloride 106 96 - 110 mmol/L LAB CHEMISTRY METHOD 10/10/2024 10:59 AM [facility] CO2 22 21 - 32 mmol/L LAB CHEMISTRY METHOD 10/10/2024 10:59 AM [facility] Anion Gap 8 3 - 11 LAB CHEMISTRY METHOD 10/10/2024 10:59 AM [facility] Glucose 80 70 - 100 mg/dL LAB CHEMISTRY METHOD 10/10/2024 10:59 AM [facility] BUN 10 5 - 25 mg/dL LAB CHEMISTRY METHOD 10/10/2024 10:59 AM [facility] Creatinine 0.65 0.50 - 1.10 mg/dL LAB CHEMISTRY METHOD 10/10/2024 10:59 AM [facility] eGFR 116 >=60 mL/min/1. 73m2 LAB CHEMISTRY METHOD 10/10/2024 10:59 AM [facility] Comment:Calculation based on the Chronic Kidney Disease Epidemiology Collaboration (CKD-EPI) equation refit without adjustment for race. BUN/Creatinine Ratio 15.4 LAB CHEMISTRY METHOD 10/10/2024 10:59 AM EDT [facility] Calcium 9.1 8.5 - 10.5 mg/dL LAB CHEMISTRY METHOD 10/10/2024 10:59 AM EDT [facility] Blood Venous blood specimen / Unknown Venipuncture / Unknown 10/10/2024 8:48 AM EDT 10/10/2024 8:49 AM EDT Lee Ann PALMER LAB BLOOD ORDERABLES Final Resu lt [facility] [address] [place] [address], * XR Hand 3+ Views Right (10/03/2024 [...] Signed Date: 10/03/2024 09:50 ET Workstation ID: [id number] Transcribed By: Self Edit Transcribed Date: 10/03/2024 [...] Signed Date: 10/03/2024 09:50 ET Workstation ID: [id number] Transcribed By: Self Edit Transcribed Date: 10/03/2024 [...] Signed Date: 10/03/2024 09:52 ET Workstation ID: [id number] Transcribed By: Self Edit Transcribed Date: 10/03/2024 [...] Signed Date: 10/03/2024 09:52 ET Workstation ID: [id number] Transcribed By: Self Edit Transcribed Date: 10/03/2024 09:50 ET Jay Heck [employer] IMG XR PROCEDURES Final Result from Last 3 Months Insurance MEDICARE MEDICAID - [place] Care Teams Greenskeeper Relationship Specialty Start Date End Date Shailesh Ferrell MD [address] [place] [address] [address] [place] [id number] PCP - General 06/09/22
== END 2024-11-26 07:48 | disposition home or self-care (01) ==
LOC: HO.MRI 07:47
PROVIDERS: PCP Student in an Organized Health Care Education/Training Program; Visit Provider Psychiatry & Neurology Neurology
DX: G81.91 Hemiplegia, unspecified affecting right dominant side (principal); G93.49 Other encephalopathy
CPT/HCPCS: 70551

== ENCOUNTER → 2024-11-26 07:55 | Outpatient (BNV) | payer MEDICARE, MEDICAID, SELFPAY | PROVIDERS: PCP Student in an Organized Health Care Education/Training Program; Visit Provider Radiology Diagnostic Radiology | DX: G81.91 Hemiplegia, unspecified affecting right dominant side (principal) | CPT/HCPCS: 70551 ==

== ENCOUNTER 2024-12-16 11:00 | Outpatient (AMB) | payer MEDICARE, MEDICAID, SELFPAY ==
--- OUTSIDE RECORDS SUMMARY | 2024-01-15 07:26 | XMS_ITS | Encounter Summary ---
Author Organization [employer] Address [address] [place] [address] Care Team Providers Care Consumer Relations Complaint Clerk Name Role Phone Shailesh Ferrell MD Primary Care Provider [phone] Encounter Details Date Type Department Care Team (Late st Contact Info) Description 01/15/2024 7:26 AM EDT Hospital Encounter TH HISTORIC ENCOUNTERS EASTERN CONVERSION ONLY Karsten King PA [address] [place] [address] Social History Tobacco Use Types Packs/Day Years [...] for your loved ones. For example, child nutrition director or elderly care for an older adult? [...] Care Team (Late st Contact Info) Description 02/12/2025 9:00 AM EST Office Visit Rheumatology - [place] [address] [place] [address] Divina Hoffman MD [address] [place] [address] 02/13/2025 8:00 AM EST Office Visit Gastroenterology - [place] [address] [facility] [address] [place] [phone] Gissell Olivera NP 175 [facility] [address] [place] [address] 06/18/2025 9:30 AM EDT Office Visit [facility] [address] [place] [address] Divina Hoffman MD [address] [place], [place] [phone] documented as of this encounter Procedures Procedure Name Priority Date/Time Associated Diagnosis Comments CR BARIUM SWALLOW Routine 01/15/2024 1:3 7 PM EDT documented in this encounter Results * CR BARIUM SWALLOW (01/15/2024 1:37 PM EDT) Anatomical Region Laterality Modality Radiographic Danielle ging 01/15/2024 7:32 AM EDT Narrative 01/15/2024 1:37 PM EDT [facility] Diagnostic Imaging Department [address] [place] [id number] Patient: MARY GILMAN /Age/Sex: 1985 - 38 - F Unit#: [id number] Location/Status: SPDIGEN/REG CLI Mnemonic[facility] Ordering Physician: KARSTEN KING PA-C CR Barium Swallow - 01/15/24 - 0819 Report Status:Signed FINDINGS: Double contrast esophagram performed. Exam is limited due to patient's developmental delay. Patient's patient safety tech working to get patient to swallow barium with limited success. COMPARISON: Barium swallow December 20, 2017 HISTORY: Patient is a 38-year-old female with history of developmental delay here with her patient safety tech. Per patient's patient safety tech, reports gagging with eating. Content Checker radiographs: 1 view chest radiograph demonstrates cardiac [...] to swallow 13 mm barium tablet, as patient safety tech reports patient typically takes pills with applesauce. [...] Signed by: SANJAY OLEARY Dic Date/Time: 01/15/24 0874 Sign date/Time: 01/15/24 0957 Procedure Note Sanjay Oleary MD - 01/22/2024 [facility] Diagnostic Imaging Department [address] [place] [address] Patient: MARY GILMAN /Age/Sex: 1985 - 38 - F Unit#: [id number] Location/Status: SPDIGEN/REG CLI Mnemonic/Ordering Site: [facility] Ordering Physician: KARSTEN KING PA-C CR Barium Swallow - 01/15/[address] Report Status:Signed FINDINGS: Double contrast esophagram performed. Exam is limited due topatient's developmental delay. Patient's patient safety tech working to get patient toswallow barium with limited success. COMPARISON: Barium swallow December 20, 2017 HISTORY: Patient is a 38-year-old female with history of developmentaldelay here with her patient safety tech. Per patient's patient safety tech, reports gagging witheating. Content Checker radiographs: 1 view chest radiograph demonstrates cardiac [...] Signed by: SANJAY OLEARY Dic Date/Time: 01/15/24 0824 Sign date/Time: 01/15/24 1330 Karsten PALMER IMG XR PROCEDURES Final Result documented in this encounter Visit Diagnoses Not on filedocumented in this encounter Care Teams Consumer Relations Complaint Clerk Relationship Specialty Start Date End Date Shailesh Ferrell MD [address] [place] [phone] PCP - General 06/09/22 documented as of this encounter
--- OUTSIDE RECORDS SUMMARY | 2024-12-15 13:00 | XMS_ITS | Encounter Summary ---
Author Organization [employer] Address [address] [place] [address] Care Team Providers Care School Psychologist Assistant Name Role Phone Shailesh Ferrell MD Primary Care Provider [phone] Reason for Referral * Consultation (Routine) - Authorized Specialty Diagnoses / Procedures Referred By Sarbjit enrique Referred To Contact Hand Surgery Diagnoses Rheumatoid arthritis involving right wrist, unspecified whether rheumatoid factor present (CMS/HCC V24, CMS/HCC V28) Pain of right hand Shailesh Ferrell MD 175 [facility] [address] [place] [address] Phone: tel: fax: Orthopedic Surgery - [place] [address] 175 [facility] [address] [place] [address] Phone: tel: fax: Referral ID Status Reason Start Date Expiration Date Visits Requested Visits Authorized [id number] Authorized Specialty Services Required 12/15/2024 12/15/2025 12 12 Reason for Visit * Reason Comments Hospitalization/ER Encounter Details Date Type Department Care Team ([facility] st Contact Info) Description 12/15/2024 1:00 PM EDT Office Visit Internal Medicine - [place] 175 [facility] [address] [place] [address] Shailesh Ferrell MD 175 [facility] [address] [place] [address] Epigastric pain (Primary Dx); Chest pain, unspecified type; Dysphagia, unspecified type; Gastroesophageal reflux disease without esophagitis; Developmental delay disorder; Rheumatoid arthritis involving right wrist, unspecified whether rheumatoid factor present ([facility] V24, [facility] V28); Pain of right hand Social History Tobacco Use Types Packs/Day Years [...] your loved ones. For example, child care director or elderly care for an older [...] PM EST documented as of this encounter Last Filed Vital Signs Vital Sign Reading Time Taken Comments Blood Pressure 120/85 12/15/2024 1:10 PM EDT Pulse 94 12/15/2024 1:00 PM EDT Temperature 36.7 C (98 F) 12/15/2024 1:00 PM EDT Respiratory Rate - - Oxygen Saturation 98% 12/15/2024 1:00 PM EDT Inhaled Oxygen Concentration - - Weight 48.5 kg (107 lb) 12/15/2024 1:00 PM EDT Height 158.8 cm (5' 2.5 ) 12/15/2024 1:00 PM EDT Body Mass Index 19.26 12/15/2024 1:00 PM EDT documented in this encounter Ordered Prescriptions Prescription Sig Dispense Quantity Refills Last Filled Start Date End Date pantoprazole (PROTONIX) 40 mg EC tablet Take 1 tablet (40 mg total) by mouth 1 (one) time each day. Do not crush, chew, or split. 90 each 1 12/15/2024 06/13/2025 predniSONE (DELTASONE) 20 mg tablet Take 3 tabs (60mg) daily for 5 days, then take 2 tabs (40mg) daily for 5 days, then take 1 tab (20mg) daily for 5 days, 0.5 tab for 5 days. 33 tablet 12/15/2024 12/24/2024 documented in this encounter Progress Notes * Shailesh Ferrell MD - 12/15/2024 1:00 PM EDT CHIEF COMPLAINT: Hospitalization/ER IDENTIFIER: Patricia Gilman is a 39 y.o. old female. History of Present Illness Patient is a 39-year-old lady with following past medical history came today for follow-up visit after ER visit and follow-up of the following complaints. Patient went to the [facility] ER with the complaint of abdominal and chest pain. Patient have history of chronic pain and following with the rheumatology. She also have history of Sunny fundoplication 20 years ago. In the emergency vitals shows slightly high blood pressure of 152/103with elevated pulse rate of 115. Labs shows no significant abnormality except proBNP level slightlyhigh of 202. Chest x-ray was normal. Patient was given famotidine and oxycodone. And discharge. The patient presents for hand pain and elevated blood pressure. Hand Pain - Persists despite prednisone. - Current medications: methotrexate 10 mg weekly, prednisone 5 mg, meloxicam - Symptoms ongoing for over a month - Abdominal pain possibly due to medication - On examination first second third PIP joint of the right side is inflamed, tender and range of motion limited. Elevated Blood Pressure - Blood pressure remains elevated, reaching 161 systolic in the ER - Monitors BP at home thrice daily - Upcoming electro mechanical technician appointment in 01/2025 Blood pressure remains elevated, reaching 161 systolic during her emergency room visit - She monitors her blood pressure at home three times daily ROS: As per HPI GENERAL: No malaise, significant weight loss or fever HEENT: No changes in hearing or vision, nose bleeds or other nasal problems NECK: No lumps, goiter, pain or significant neck swelling RESPIRATORY: No cough, wheezing or shortness of breath CARDIOVASCULAR: No chest pain, leg swelling or palpitations BREAST: No lumps, discharge, pain or change in skin GI: No abdominal discomfort, blood in stools or black stools : No dysuria, frequency or incontinence PRODUCT DEVELOPMENT CARPENTER: No abnormal vaginal bleeding or abnormal vaginal discharge. MUSCULOSKELETAL: No joint pain or swelling, back pain, or muscle pain. SKIN: No lesions, rash or itching PSYCH: No sleep disturbance, mood disorder or recent psychosocial stressors. HEMATOLOGY/LYMPHOLOGY No prolonged bleeding, easy bruisability or swollen nodes ENDOCRINE: No cold or heat intolerance, polyuria, polydipsia or goiter. 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 NoH. pylori appreciated. EYE SURGERY HERNIA REPAIR MOODY FUNDOPLICATION N/A OTHER SURGICAL HISTORY 2003 PROCEDURE: MT RPR INGUN HERNIA SLIDING ANY AGE; COMMENT: [facility], [place] fundoplication for reflux. SOCIAL HISTORY: Social History Tobacco Use Smoking status: Never Smokeless tobacco: Never Substance Use Topics Alcohol use: No FAMILY HISTORY: Family History Problem Relation Name Age of Onset Leukemia Maternal Grandfather Family Status Relation Name Status MGF No partnership data on file MEDICATIONS DISCONTINUED/REORDERED: Medications Discontinued During This Encounter Medication Reason predniSONE (DELTASONE) 5 mg tablet esomeprazole (NexIUM) [address] capsule Formulary change famotidine (PEPCID) 20 mg tablet Formulary change ACTIVE MEDICATIONS: Outpatient Medications Marked as Taking for the 12/15/24 encounter (Office Visit) with Shailesh Ferrell MD Medication Sig Dispense Refill [DISCONTINUED] famotidine (PEPCID) 20 mg tablet Take 1 tablet (20 mg total) by mouth 2 (two) times a day. for 7 days ALLERGIES: No Known Allergies PHYSICAL EXAM: Visit Vitals BP 120/85 Pulse 94 Temp 36.7 ??C (98 ??F) (Temporal) Ht 1.588 m (62.5 ) Wt 48.5 kg (107 lb) SpO2 98% BMI 19.26 kg/m?? Smoking Status Never BSA 1.47 m?? Physical Exam Physical Exam General Appearance: well appearing and not on acute distress HEENT: Normocephalic. External ears normal. Nose normal. Mucous membranes are moist. Oropharynx is clear. Eyes: Conjunctivae normal. Respiratory: Clear to auscultation, no wheezing, rales, or rhonchi Cardiovascular: Regular rate and rhythm, no murmurs, rubs, or gallops Gastrointestinal: Bowel sounds are normal. Abdomen is soft. Back, Musculoskeletal: Normal range of motion. Normal cervical range of motion and neck supple. Extremities: Inflammation and swelling in PIP joints of the hand Skin: Warm and dry, no rash. Neurological: Alert. Other observations: BP 125/80 LABS/IMAGING: Appointment on 11/13/2024 Component Date Value Ref Range Status Total Protein 11/13/2024 7.1 6.0 - 8.0 g/dL Final Albumin, Serum 11/13/2024 4.0 2.9 - 4.1 g/dL Final Alpha 1 Globulin (g/dL) 11/13/2024 0.3 0.1 - 0.5 g/dL Final Alpha 2 Globulin (g/dL) 11/13/2024 0.9 0.7 - 1.5 g/dL Final Beta (g/dL) 11/13/2024 1.0 0.7 - 1.5 g/dL Final Gamma Globulin (g/dL) 11/13/2024 1.0 0.7 - 1.9 g/dL Final SPEP Interpretation 11/13/2024 No M-Vincent seen. Essentially normal pattern. Final [place] Free Light Chain 11/13/2024 0.96 0.33 - 1.94 mg/dL Final Lambda Free Light Chain 11/13/2024 0.79 0.57 - 2.63 mg/dL Final [place]/Lambda FLC Ratio 11/13/2024 1.22 0.26 - 1.65 Final CCP AB Quant 11/13/2024 6 <20 Units Final Cyclic Citrullinated Peptide (CCP)* 11/13/2024 Negative Negative Final C-Reactive Protein 11/13/2024 <0.29 <=0.50 mg/dL Final Sed Rate 11/13/2024 3 0 - 20 mm/hr Final Uric Acid 11/13/2024 1.7 (L) 3.1 - 7.8 mg/dL Final Immunofixation Result, Serum 11/13/2024 No monoclonal immunoglobulins detected. Final Total IgG 11/13/2024 991 549 - 1,584 mg/dL Final IgA 11/13/2024 113 61 - 348 mg/dL Final IgM 11/13/2024 144 23 - 259 mg/dL Final Specific [place] Urine 11/13/2024 1.025 1.003 - 1.030 Final pH, Urine 11/13/2024 6.0 5.0 - 8.0 pH Final Leukocytes, Urine 11/13/2024 Trace (A) Negative Final Nitrite, Urine 11/13/2024 Negative Negative Final Protein, Urine 11/13/2024 Trace <=Trace mg/dL Final Glucose, Urine 11/13/2024 Negative Negative mg/dL Final Ketones, Urine 11/13/2024 Trace (A) Negative mg/dL Final Urobilinogen, Urine 11/13/2024 1.0 0.2 - 1.0 mg/dL Final Bilirubin, Urine 11/13/2024 Negative Negative Final Blood, Urine 11/13/2024 Negative Negative Final RBC, Urine 11/13/2024 4.0 0 - 4 /HPF Final WBC, Urine 11/13/2024 5.8 (H) 0 - 4 /HPF Final Squamous Epithelial, Urine 11/13/2024 >100 (H) 0 - 60 /LPF Final Crystals, Urine 11/13/2024 Heavy Amorphous Urate crystals. /LPF Final Bacteria, Urine 11/13/2024 Few (A) Negative /HPF Final Hyaline Casts, Urine 11/13/2024 0 0 - 3 /LPF Final Extra Tube 11/13/2024 Hold for add-ons. Final Total Protein 11/13/2024 7.1 6.0 - 8.0 g/dL Final Culture, Urine 11/13/2024 10,000-49,000 CFU/mL Mixed urogenital beverly, no uropathogens present. Suggest repeat specimen if clinically indicated. Final Pathologist Interpretation 11/13/2024 Final Pathologist Interpretation 11/13/2024 Final Appointment on 10/24/2024 Component Date Value Ref Range Status TSH 10/24/2024 1.16 0.40 - 4.00 mcIU/mL Final Quantiferon Plus Interpretation 10/24/2024 Negative Negative Final Appointment on 10/10/2024 Component Date Value Ref Range Status Sodium 10/10/2024 136 133 - 145 mmol/L Final Potassium 10/10/2024 4.2 3.5 - 5.5 mmol/L Final Chloride 10/10/2024 106 96 - 110 mmol/L Final CO2 10/10/2024 22 21 - 32 mmol/L Final Anion Gap 10/10/2024 8 3 - 11 Final Glucose 10/10/2024 80 70 - 100 mg/dL Final BUN 10/10/2024 10 5 - 25 mg/dL Final Creatinine 10/10/2024 0.65 0.50 - 1.10 mg/dL Final eGFR 10/10/2024 116 >=60 mL/min/1.73m2 Final BUN/Creatinine Ratio 10/10/2024 15.4 Final Calcium 10/10/2024 9.1 8.5 - 10.5 mg/dL Final Uric Acid 10/10/2024 2.4 (L) 3.1 - 7.8 mg/dL Final Sed Rate 10/10/2024 4 0 - 20 mm/hr Final Rheumatoid Factor 10/10/2024 <10.0 <15.0 I Unit/mL Final C-Reactive Protein 10/10/2024 0.40 <=0.50 mg/dL Final WBC 10/10/2024 7.1 4.8 - 10.8 K/mcL Final RBC 10/10/2024 4.50 3.80 - 4.80 M/mcL Final Hemoglobin 10/10/2024 13.3 11.5 - 16.0 g/dL Final Hematocrit 10/10/2024 40.2 35.0 - 47.0 % Final MCV 10/10/2024 88.7 79.0 - 98.0 FL Final MCH 10/10/2024 29.4 27.0 - 32.0 pcg Final MCHC 10/10/2024 33.1 32.0 - 37.0 g/dL Final RDW 10/10/2024 12.4 11.0 - 15.0 % Final Platelets 10/10/2024 227 130 - 400 K/mcL Final MPV 10/10/2024 10.4 7.0 - 11.0 FL Final NRBC 10/10/2024 0.0 <1.0 % Final NRBC Absolute 10/10/2024 0.00 <0.10 K/mcL Final Neutrophils Relative 10/10/2024 70.2 % Final Lymphocytes Relative 10/10/2024 22.2 % Final Monocytes Relative 10/10/2024 5.5 % Final Eosinophils Relative 10/10/2024 1.1 % Final Basophils Relative 10/10/2024 0.6 % Final Immature Granulocytes Relative 10/10/2024 0.4 % Final Neutrophils Absolute 10/10/2024 4.99 1.50 - 7.00 K/mcL Final Lymphocytes Absolute 10/10/2024 1.58 1.00 - 5.00 K/mcL Final Monocytes Absolute 10/10/2024 0.39 0.20 - 1.00 K/mcL Final Eosinophils Absolute 10/10/2024 0.08 0.00 - 0.50 K/mcL Final Basophils Absolute 10/10/2024 0.04 0.00 - 0.20 K/mcL Final Immature Granulocytes Absolute 10/10/2024 0.03 0.00 - 0.03 K/mcL Final Hospital Outpatient Visit on 08/08/2024 Component Date Value Ref Range Status Final Diagnosis 08/08/2024 Final Value:A. Esophagus, G-E junction, biopsy: Gastroesophageal mucosa with mild chronic inflammation and reactive changes. No infectious etiology, intestinal metaplasia, or dysplasia identified. B. Esophagus, biopsy: Benign esophageal squamous mucosa with no specific pathologic change identified. Gross Description 08/08/2024 Final Value:A. Esophagus, G-E junction biopsy: Labeled esophagus GE junction . Received in formalin is a 0.5 cm irregular pink-white mucosal tissue fragment which is wrapped in paper and submitted in toto in one cassette, one piece, multiple levels on one slide. B. Esophagus, biopsy: Labeled esophagus biopsy at . Received in formalin are four irregular pink- white mucosal tissue fragments, each measuring approximately 0.2 cm in greatest dimension, which are wrapped in paper and submitted in toto in one cassette, four pieces, multiple levels on one slide. RAYMOND Disclaimer 08/08/2024 Final Value:Unless otherwise specified, all tissue is 10% NB formalin fixed and paraffin embedded. Results IMPRESSION: 1. Epigastric pain 2. Chest pain, unspecified type 3. Dysphagia, unspecified type 4. Gastroesophageal reflux disease without esophagitis 5. Developmental delay disorder 6. Rheumatoid arthritis involving right wrist, unspecified whether rheumatoid factor present ([facility] V24, [facility] V28) 7. Pain of right hand PLAN: Epigastric pain (Primary) Chest pain, unspecified type Dysphagia, unspecified type Gastroesophageal reflux disease without esophagitis Developmental delay disorder Rheumatoid arthritis involving right wrist, unspecified whether rheumatoid factor present (CMS/[facility] V24, [facility] V28) - Ambulatory referral to Hand Surgery; Future Pain of right hand - Ambulatory referral to Hand Surgery; Future Other orders - predniSONE (DELTASONE) 20 mg tablet; Take 3 tabs (60mg) daily for 5 days, then take 2 tabs (40mg)daily for 5 days, then take 1 tab (20mg) daily for 5 days, 0.5 tab for 5 days. Dispense: 33 tablet;Refill: 0 - pantoprazole (PROTONIX) 40 mg EC tablet; Take 1 tablet (40 mg total) by mouth 1 (one) time each day. Do not crush, chew, or split. Dispense: 90 each; Refill: 1 Assessment & Plan 1. Hand pain: Acute. - Initiate prednisone 60 mg with taper over 20 days. - Prescribe pantoprazole 30 minutes before breakfast. - Refer to hand specialist. - Discontinue famotidine and esomeprazole. - Advised to follow-up with rheumatology and make appointment as soon as possible. - Continue methotrexate 2. Elevated blood pressure: Stable. - BP today 122/96 repeat 120/85 - Monitor BP daily, maintain chart. - Contact office if BP >140/90 consistently for 7 days. - Follow-up in a month with log 3. Gastroesophageal reflux - Continue the medication pantoprazole 40 mg daily 30-minute before breakfast - Advised to take the prednisone after a heavy meal. Follow-up - Scheduled in 1 month or sooner as needed. I have obtained verbal consent from Patricia Gilman prior to the recording. I have advised Patricia Gilman that she may refuse the recording and require the recording to be turned off at any time during this encounter. Advised the patient to call me if any problems. Patient understands the plan. Patient is in agreement with the plan. Shailesh Ferrell MD on 12/15/2024 at 5:41 PM EDT documented in this encounter Plan of Treatment Upcoming Encounters Date Type Department Care Team (Late st Contact Info) Description 02/12/2025 9:00 AM EST Office Visit Rheumatology [facility] [address] [place] [phone] Divina Hoffman MD [address] [place] [phone] 02/13/2025 8:00 AM EST Office Visit Gastroenterology - [place] 175 [facility] 175 [facility] [address] [place] [address] Gissell Olivera, SUSI 175 [facility] [address] [place] [address] 06/18/2025 9:30 AM EDT Office Visit Rheumatology [facility] [address] [place] [phone] Divina Hoffman MD [address] [place] [phone] Scheduled Referrals Name Type Priority Associated Diagnoses Orde r Schedule Ambulatory referral to Hand Surgery Outpatient Referral Routine Rheumatoid arthritis involving right wrist, unspecified whether rheumatoid factor present ([facility] V24, [facility] V28) Pain of right hand Expected: 12/29/2024, Expires: 12/15/2025 documented as of this encounter Visit Diagnoses Diagnosis Epigastric pain- Primary Abdominal pain, epigastric Chest pain, unspecified type Dysphagia, unspecified type Gastroesophageal reflux disease without esophagitis Esophageal reflux Developmental delay disorder Unspecified delay in development Rheumatoid arthritis involving right wrist, unspecified whether rheumatoid factor present ([facility] V24, [facility] V28) Pain of right hand documented in this encounter Discontinued Medications Medication Sig Discontinue Reason Start Date End Da te predniSONE (DELTASONE) 5 mg tabletIndications:Inflam matory arthritis Take 2 tablets (10 mg total) by mouth 1 (one) time each day for 14 days, THEN 1 tablet (5 mg total) 1 (one) time each day for 14 days. 12/09/2024 12/15/2024 esomeprazole (NexIUM) [address] capsule Take 1 capsule (40 mg total) by mouth 1 (one) time each day before breakfast. Do not open capsule. Formulary change 09/18/2024 12/15/2024 famotidine (PEPCID) 20 mg tablet Take 1 tablet (20 mg total) by mouth 2 (two) times a day. for 7 days Formulary change 12/11/2024 12/15/2024 documented as of this encounter Historical Medications * This list may reflect changes made after this encounter. famotidine (PEPCID) 20 mg tablet Take 1 tablet (20 mg total) by mouth 2 (two) times a day. for 7 days 12/11/2024 12/15/2024 added in this encounter Additional Health Concerns Assessment Noted Time PHQ-9 Depression Total Score: 10 025 9:43 AM EDT A fall risk assessment has been complete d for the patient 10/24/2024 9:03 AM EDT documented as of this encounter Care Teams School Psychologist Assistant Relationship Specialty Start Date End Date Shailesh Ferrell MD [address] [place] [phone] PCP - General 06/09/22 documented as of this encounter
--- NOTE | 2024-12-16 11:02 | MHC.OFFVIS ---
Intake Visit Reasons: After MRI/EEG Allergies No Known Allergies Allergy (Verified 11/10/24 08:09) HPI Comments Details: The patient is a 39-year-old female presenting with concerns related to potential worsening neurological symptoms. Historically, she experienced developmental delay and brain abnormalities on the left side. 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 She talked when she was about 9 years old and walked when she was about 7 years old. She went to school and had special education sessions. Multiple investigations including brain MRI, EEG, and laboratories did not reveal any significant issue. ON LICENSE OF [facility] Medical History (Updated 12/16/24 @ 11:12 by Ari Mckeon MD) Failure of fundoplication GERD (gastroesophageal reflux disease) Low weight Irregular menses Bladder spasms Thyroid nodule External constriction of right hand Dysphagia Psychiatric diagnosis Anxiety Vitamin D deficiency Amygdalolith Strabismus Surgical History (Updated 11/10/24 @ 08:08 by Shireen Sanchez [facility]) History of Moody fundoplication H/O hernia repair H/O eye surgery H/O esophagogastroduodenoscopy Family History (Updated 11/10/24 @ 08:09 by Shireen Sanchez [employer]) Maternal Grandmother Leukemia Review of Systems Const Details: No discomfort or seizure-like episode. Physical Exam Neuro Other: She is alert and awake anxious looking down not making an eye contact. She did not stand up when asked. Family had to hold her hand to coax her to get up and start walking. No obvious sign of distress. Assessment & Plan Assessment & Plan (1) Chronic static encephalopathy: Comment: [place] [facility]: No sig abnormality noted. [place] [facility] [place]: Mild slowing Labs at [facility] in 2024: CMP ok. LFTs ok, Lipids ok, CBC ok, Thyroid profile WNL, B12 654, Folate >20, Vit D 26.8, Ferritin 77, Mag 2.2, Anti sepulveda, Ro, ds DNA, Sc-l70, TPO, Chromatin, CCP, cardiolipins: WNL, C3/C4 ok. 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 MRI of brain did not reveal any significant abnormality an EEG did not reveal any epileptic tendency or any other significant abnormality. Routine labs were unremarkable. Liver enzymes and thyroid function tests were also normal. Some test done for collagen vascular disease were also unremarkable. Treatment and conservative. Coding Level of Care Code Est Pt Level 5 (16701) Diagnoses Chronic static encephalopathy G93.49 Cognitive and neurobehavioral dysfunction F09
--- OUTSIDE RECORDS SUMMARY | 2024-12-16 13:38 | XMS_ITS | Encounter Summary ---
Author Organization [facility] Address [address] [place] [address] Care Team Providers Care Venetian Blind Worker Name Role Phone Shailesh Ferrell MD Primary Care Provider [phone] Encounter Details Date Type Department Care Team (Late st Contact Info) Description 12/09/2024 Telephone Rheumatology - [facility] [address] [place] [phone] Divina Hoffman MD [address] [place] [address] Social History Tobacco Use Types Packs/Day Years [...] care for your loved ones. For example, registered nurse maternal child or elderly care for an older [...] as of this encounter Progress Notes * Divina Hoffman MD - 12/09/2024 9:57 AM EDT She should continue methotrexate for now. Add prednisone again 5 mg #2 tabs daily for 14 days and see if it helps her * Serge Poon - 12/09/2024 8:08 AM EDT Patient's hand has not gotten any better and she can't take medication as prescribed; meloxiocam, due to being on methotrexate. Patient's recent blood pressure was high 132/98, pulse 110, not sure ifmedication is the cause, patient's mother is requesting to come in for evaluation. Patient went to ER last night but they left it was too full. Patient has 11:15 am appointment with PCP today, pleaseadvise mother is concerned. documented in this encounter Plan of Treatment Upcoming Encounters Date Type Department Care Team (Late st Contact Info) Description 02/12/2025 9:00 AM EST Office Visit Rheumatology [facility] [address] [place] [phone] Divina Hoffman MD [address] [place] [phone] 02/13/2025 8:00 AM EST Office Visit Gastroenterology - [facility] [address] [facility] [address] [place] [phone] Gissell Olivera, SUSI [address] [facility] [address] [place] [phone] 06/18/2025 9:30 AM EDT Office Visit Rheumatology [facility] [address] [place] [phone] Divina Hoffman MD [address] [place] [phone] documented as of this encounter Visit Diagnoses Not on filedocumented in this encounter Additional Health Concerns Assessment Noted Time PHQ-9 Depression Total Score: 10 09/10/2 025 9:43 AM EDT A fall risk assessment has been complete d for the patient 10/24/2024 9:03 AM EDT documented as of this encounter Care Teams Venetian Blind Worker Relationship Specialty Start Date End Date Shailesh Ferrell MD [address] [place] [address] [address] [place] [phone] PCP - General 06/09/22 documented as of this encounter
--- OUTSIDE RECORDS SUMMARY | 2024-12-16 13:38 | XMS_ITS | Clinical Summary ---
Author Organization [facility] Address [address] [place] [address] Phone Care Team Providers Care Clean Up Supervisor Name Role Phone Shailesh Ferrell MD Primary Care Provider [phone] Allergies No known active allergies Medications fluticasone propionate (FLONASE) 50 mcg/actuation nasal spray 01/29/20 21 Active DISPOSABLE GLOVES MISC 1 Container by Not Applicable route. 08/07/19 24 Active food supplemt, lactose-reduce d (Boost High Protein) 0.08 gram- 1.1 kcal/mL liquid Take 1 Dose by mouth 3 (three) times a day. 2700 mL 11 03/28/19 25 Active acetaminophen (Tylenol Extra Strength) 500 mg tablet Take 2 tablets (1,000 mg total) by mouth every 6 (six) hours if needed for mild pain. 90 tablet 1 05/13/19 25 Active Vitamin D3 50 mcg (2,000 unit) tablet Take 1 tablet (2,000 Units total) by mouth 1 (one) time each day. 05/26/19 25 Active Altavera, 28, 0.15-0.03 mg per tablet TAKE 1 TABLET BY MOUTH EVERY DAY 84 tablet 5 10/07/19 25 Active arm brace miscIndication s:Right hand pain,Tardive dyskinesia 1 each 1 (one) time each day. 10/15/19 25 Active methotrexate 2.5 mg tablet Take 4 tablets (10 mg total) by mouth 1 (one) time per week Follow directions carefully, and ask to explain any part you do not understand. Take exactly as directed. 16 tablet 3 11/28/19 25 01/02/2 026 Active folic acid (FOLVITE) 1 mg tablet Take 1 tablet (1 mg total) by mouth 1 (one) time each day. 30 each 11 11/28/19 026 Active cyclobenzaprin e (FLEXERIL) 10 mg tabletIndicati ons:Inflammato ry arthritis Take 1 tablet (10 mg total) by mouth at bedtime as needed for muscle spasms. 30 each 11/28/19 25 025 Active meloxicam (MOBIC) 7.5 mg tablet Take 1 tablet (7.5 mg total) by mouth 1 (one) time each day if needed for moderate pain. 30 tablet 1 11/28/19 Active predniSONE (DELTASONE) 20 mg tablet Take 3 tabs (60mg) daily for 5 days, then take 2 tabs (40mg) daily for 5 days, then take 1 tab (20mg) daily for 5 days, 0.5 tab for 5 days. 33 tablet 12/16/19 Active pantoprazole (PROTONIX) 40 mg EC tablet Take 1 tablet (40 mg total) by mouth 1 (one) time each day. Do not crush, chew, or split. 90 each 1 12/16/19 25 026 Active esomeprazole (NexIUM) [address] capsule Take 1 capsule (40 mg total) by mouth 1 (one) time each day before breakfast. Do not open capsule. 90 each 3 09/19/19 25 025 Discontinued(Fo rmulary change) predniSONE (DELTASONE) 5 mg tabletIndicati ons:Inflammato ry arthritis Take 2 tablets (10 mg total) by mouth 1 (one) time each day for 14 days, THEN 1 tablet (5 mg total) 1 (one) time each day for 14 days. 42 each 12/10/19 25 025 Discontinued famotidine (PEPCID) 20 mg tablet Take 1 tablet (20 mg total) by mouth 2 (two) times a day. for 7 days 12/12/19 25 025 Discontinued(Fo rmulary change) Active Problems Problem Noted Date Diagnosed Date [...] Encounters Date Type Department Care Team Description 12/15/2024 1:00 PM EDT Office Visit Internal Medicine - [address] [phone] Shailesh Ferrell MD Epigastric pain (Primary Dx); Chest pain, unspecified type; Dysphagia, unspecified type; Gastroesophageal reflux disease without esophagitis; Developmental delay disorder; Rheumatoid arthritis involving right wrist, unspecified whether rheumatoid factor present (CMS/[facility] V24, [facility] V28); Pain of right hand 12/09/2024 Telephone Rheumatology [facility] [address] [place] [phone] Divina Hoffman MD 11/27/2024 9:00 AM EDT Office Visit Rheumatology [facility] [address] [place] [phone] Divina Hoffman MD Inflammatory arthritis (Primary Dx); Encounter for screening for other viral diseases; Anemia of chronic disease; Right hand pain; On prednisone therapy 11/14/2024 Telephone Internal Medicine [facility] [address] [phone] Shailesh Ferrell MD 11/12/2024 Telephone Internal Medicine - [place] 175 [facility] [address] [place] [phone] Shailesh Ferrell MD 11/12/2024 Telephone Rheumatology - [place] [address] [place] [phone] Clayton Reid MA 11/10/2024 Telephone Internal Medicine - [place] [address] [phone] Nora Molina MA 11/03/2024 Telephone Rheumatology - [place] [address] [place] [phone] Divina Hoffman MD 10/31/2024 Telephone Internal Medicine - [place] [address] [phone] Maribel Sanon MA 10/29/2024 Telephone Internal Medicine - [place] [address] [phone] Nora Molina MA 10/24/2024 9:00 AM EDT Office Visit Internal Medicine [address] [phone] Edy Kwan MD Developmental delay disorder (Primary Dx); Rheumatoid arthritis, involving unspecified site, unspecified whether rheumatoid factor present ([facility] V24, [facility] V28); [facility] health care 10/23/2024 11:00 AM EDT Consult Rheumatology - [place] [address] [place] [phone] Divina Hoffman MD Inflammatory arthritis (Primary Dx); Polyarthralgia; Positive DINAH (antinuclear antibody) 10/22/2024 Telephone Orthopedic Surgery [facility] [address] [phone] Lee Ann Curry PA 10/22/2024 Telephone Orthopedic Surgery [facility] [address] [phone] Radha Powell 10/22/2024 Telephone Orthopedic Surgery [facility] 250 175 [facility] [address] [place] [address] Lee Ann Curry PA 10/21/2024 10:45 AM EDT Telemedicine Internal Medicine [facility] [address] [phone] Mariya Wolf PA Developmental delay disorder (Primary Dx) 10/21/2024 Telephone Internal Medicine [facility] 175 [facility] [address] [place] [address] Shailesh Ferrell MD 10/20/2024 Telephone Orthopedic Surgery [facility] [address] [phone] Lee Ann Curry PA 10/14/2024 4:00 PM EDT Telemedicine [facility] 175 [facility] 200 [place] [phone] Shailesh Ferrell MD Abnormal laboratory test result (Primary Dx); Low urine uric acid level; Abnormal finding on imaging 10/14/2024 Telephone Internal Medicine [facility] [address] [phone] Shailesh Ferrell MD 10/13/2024 [place] [facility] [address] [phone] Shailesh Ferrell MD 10/13/2024 Telephone Orthopedic Surgery [facility] [address] [phone] Apoorva De La Torre 10/09/2024 2:00 PM EDT Consult Orthopedic Surgery [facility] 175 [facility] [address] [place] [phone] Lee Ann Curry PA Rheumatoid arthritis involving right hand, unspecified whether rheumatoid factor present (CMS/HCC V24, CMS/HCC V28) (Primary Dx); Right hand pain 10/07/2024 Telephone Internal Medicine [facility] 175 [facility] 200 [place] [address] Nora Molina MA 10/03/2024 9:08 AM EDT - 10/03/2024 11:59 PM EDT Hospital Encounter [facility] Xray [address] [place] [phone] Right hand pain Discharge Disposition: Home or Self Care 10/03/2024 9:08 AM EDT - 10/03/2024 11:59 PM EDT Hospital Encounter [facility] Xray [address] [place] [phone] Chronic right shoulder pain Discharge Disposition: Home or Self Care 10/03/2024 8:30 AM EDT Office Visit Internal Medicine - [place] 175 [facility] 200 [place] [phone] Jay Heck NP Right hand pain (Primary Dx); Chronic right shoulder pain; Tardive dyskinesia; Developmental delay disorder 09/18/2024 10:40 AM EDT Office Visit Gastroenterology - [place] 175 [facility] [address] [phone] Gissell Olivera NP Gastroesophageal reflux disease without esophagitis (Primary Dx); Dysphagia, unspecified type from Last 3 Months Immunizations Name Administration Dates Next Due DTaP (Infanrix) 6wks to less than 7yo ,1987,1987,1987 [id number] (Pentacel) 2mo to less than 5yo 10/24/1988 HPV, Quadrivalent 01/15/2007,08/27/2006,06/16/19 07 Hep A, Unspecified 09/24/2006 Hep B, Unspecified 04/26/1999,07/24/1998, 997 Hepatitis B Pediatric (Enger ix B; Recombivax HB) to less than 20 yo 08/24/1998 HiB 10/24/1988 IPV Inactivated polio (Ipol) 6wks and older 06/24/1994,10/24/1988,08/24/1988,1987,1987 Influenza Quadravalent, MDCK , 0.5ml, preservative free (Flucelvax) 6mo and older 01/15/2019 Influenza Quadravalent, MDCK , 0.5ml, with preservative (Flucelvax) 6mo and older 02/26/2018,12/07/2016 Influenza Whole 12/26/2007, 7,04/30/2006,2005 Influenza trivalent, with preservative (Fluzone; Afluria) 6mo and older 02/22/2012,01/12/2010 MMR, measles mumps and rubel la Live (Priorix; M-M-R II) 12mo and older 06/24/1994,01/24/1989 Meningococcal, Unspecified 09/24/2006 PPD Test 08/03/2014 Td, Unspecified 06/22/2003,06/24/1994 Tdap Tetanus diptheria acell ular pertussis (Boostrix; Adacel) 7yo and older 08/12/2023,02/22/2012,09/24/2006 Varicella live (Varivax) 12m o and older 09/24/2006,07/29/1998 Surgical History Surgery Date Site/Laterality Comments OTHER SURGICAL HISTORY 2003 PROCEDURE: [place] RPR INGUN HERNIA SLIDING ANY AGE; COMMENT: [facility], Moody fundoplication for reflux. ESOPHAGOGASTRODUODENOSCOPY 07/19/2017 PROCEDURE: [place] EGD TRANSORAL BIOPSY SINGLE/MULTIPLE; COMMENT: Chronic gastritis without activity. No H. pylori appreciated. HERNIA REPAIR EYE SURGERY MOODY FUNDOPLICATION N/A Medical History Medical History Date Comments Moderate intellectual disabilities DX:Moderate intellectual disabilities Nausea DX:Nausea Nonverbal DX:Nonverbal History of Moody fundoplication DX:History of Omody fundoplication GERD (gastroesophageal reflux disease) Dysphagia Anxiety [...] for your loved ones. For example, children's nursery assistant or elderly care for an older [...] F) 12/15/2024 1:00 PM EDT Respiratory Rate 18 08/08/2024 2:47 PM EDT Oxygen Saturation 98% 12/15/2024 1:00 PM EDT Inhaled Oxygen Concentration - - Weight 48.5 kg (107 lb) 12/15/2024 1:00 PM EDT Height 158.8 cm (5' 2.5 ) 12/15/2024 1:00 PM EDT Body Mass Index 19.26 12/15/2024 1:00 PM EDT Plan of Treatment Upcoming Encounters Date Type Department Care Team (Late st Contact Info) Description 02/12/2025 9:00 AM EST Office Visit Rheumatology [facility] [address] [place] [phone] Divina Hoffman MD [address] [place] [phone] 02/13/2025 8:00 AM EST Office Visit Gastroenterology - [place] 175 [facility] 175 [facility] [address] [place] [phone] Gissell Olivera, ENVIRONMENTAL CONFLICT MANAGER [address] [phone] 06/18/2025 9:30 AM EDT Office Visit Rheumatology [facility] [address] [place] [phone] Divina Hoffman MD [address] [place] [phone] Health Maintenance Due Date Last Done Comments Cervical Cancer Screening: Pap Smear 2008 COVID-19 Vaccine (3 - Pfizer risk series) 09/03/2020 08/06/2020, 07/13/2020 HIV Screening 02/25/2022 Hepatitis C Screening 02/25/2022 Influenza Vaccine (#1) 2024 9, 02/26/2018, 12/07/2016, Additional history exists Social Influencers of Health Screening 10/22/2025 10/22/2024 Medicare Annual Wellness Visit 10/24/2025 10/24/2024 Cholesterol Screening (Lipid Panel) 08/09/2028 08/10/2023 DTaP,Tdap,and Td Vaccines (10 - Td or Tdap) 08/11/2033 08/12/2023, 02/22/2012, 09/24/2006, Additional history exists RSV Immunization Adult Patients (1 - 1-dose 75+ series) 2062 HIB Vaccines Completed 10/24/1988, 10/24/1988 IPV Vaccines [...] Procedure Name Priority Date/Time Associated Diagnosis Comments EXTERNAL MRI REPORT 11/26/2024 EXTERNAL NEUROLOGY REPORT 11/25/2024 [place] PROTEIN ELECTROPHORETIC FRACTIONATION & QUANTITATION SERUM Routine 11/13/2024 4:33 PM EDT Polyarthralgia Low urine uric acid level IL IMMUNOFIXATION ELECTROPHORESIS SERUM Routine 11/13/2024 4:33 PM EDT Polyarthralgia Low urine uric acid level PROTEIN, TOTAL Routine 11/13/2024 4:33 PM EDT Polyarthralgia Low urine uric acid level TAM URINE CULTURE TUBE Routine 11/14/19 4:33 PM EDT Infective urethritis URINALYSIS WITH [...] unspecified site, unspecified whether rheumatoid factor present ([facility] V24, [facility] V28) Preventative health care INTERFERON GAMMA ANTIGEN 2 Routine 10/24/2024 9:30 AM EDT Developmental delay disorder Rheumatoid arthritis, involving unspecified site, unspecified whether rheumatoid factor present ([facility] V24, [facility] V28) Preventative health care INTERFERON GAMMA ANTIGEN 1 Routine 10/24/2024 9:30 AM EDT Developmental delay disorder Rheumatoid arthritis, involving unspecified site, unspecified whether rheumatoid factor present ([facility] V24, CMS/[facility] V28) Preventative health care INTERFERON GAMMA MITOGEN Routine 10/24/2024 9:30 AM EDT Developmental delay disorder Rheumatoid arthritis, involving unspecified site, unspecified whether rheumatoid factor present ([facility] V24, CMS/[facility] V28) Preventative health care INTERFERON GAMMA NIL Routine 10/24/2024 9:30 AM EDT Developmental delay disorder Rheumatoid arthritis, involving unspecified site, unspecified whether rheumatoid factor present ([facility] V24, CMS/[facility] V28) Preventative health care INTERFERON GAMMA FOR TB, QUALITATIVE Routine 10/24/2024 9:30 AM EDT Developmental delay disorder Rheumatoid arthritis, involving unspecified site, unspecified whether rheumatoid factor present ([facility] V24, [facility] V28) Preventative health care THYROID STIMULATING HORMONE [...] pain from Last 3 Months Results * External MRI Report (11/26/2024) Anatomical Region Laterality Modality Magnetic Resonan ce Provider [facility] IMG MRI PROCEDURES Final Result * External Neurology Report (11/25/2024) Provider [facility] NEUROLOGY ORDERABLES Fin al Result * Pathologist Review Immunofixation (11/13/2024 4:33 PM EDT) Pathologist Interpretation 11/18/2024 10:45 AM EDT [facility] Blood Venous blood specimen / Unknown Venipuncture / Unknown 11/13/2024 4:33 PM EDT 11/13/2024 4:33 PM EDT Divina Hoffman MD LAB BLOOD ORDERABLES Final Res ult [facility] [address] [place] [address], [place] [phone] * (ABNORMAL) Urinalysis with reflex microscopic and culture (11/13/2024 4:33 PM EDT) Specific [place] Urine 1.025 1.003 - 1.030 LAB URINALYSIS - AUTOMATED METHOD 11/13/2024 7:46 PM EDT [facility] pH, Urine 6.0 5.0 - 8.0 pH LAB URINALYSIS - AUTOMATED METHOD 11/13/2024 7:46 PM EDT [facility] Leukocytes, Urine Trace(A) Negative LAB URINALYSIS - AUTOMATED METHOD 11/13/2024 7:46 [facility] Nitrite, Urine Negative Negative LAB URINALYSIS - AUTOMATED METHOD 11/13/2024 7:46 PM EDT [facility] Protein, Urine Trace <=Trace mg/dL LAB URINALYSIS - AUTOMATED METHOD 11/13/2024 7:46 PM [facility] Glucose, Urine Negative Negative mg/dL LAB URINALYSIS - AUTOMATED METHOD 11/13/2024 7:46 PM [facility] Ketones, Urine Trace(A) Negative mg/dL LAB URINALYSIS - AUTOMATED METHOD 11/13/2024 7:46 PM EDT [facility] Urobilinogen , Urine 1.0 0.2 - 1.0 mg/dL LAB URINALYSIS - AUTOMATED METHOD 11/13/2024 7:46 PM T [facility] Bilirubin, Urine Negative Negative LAB URINALYSIS - AUTOMATED METHOD 11/13/2024 7:46 PM EDT [facility] Blood, Urine Negative Negative LAB URINALYSIS - AUTOMATED METHOD 11/13/2024 7:46 PM [facility] RBC, Urine 4.0 0 - 4 /HPF LAB URINALYSIS - AUTOMATED METHOD 11/13/2024 7:46 PM EDT [facility] WBC, Urine 5.8(H) 0 - 4 /HPF LAB URINALYSIS - AUTOMATED METHOD 11/13/2024 7:46 PM EDT [facility] Squamous Epithelial, Urine >100(H) 0 - 60 /LPF LAB URINALYSIS - AUTOMATED METHOD 11/13/2024 7:46 PM EDT [facility] Crystals, Urine Heavy Amorphous Urate crystals. /LPF 11/13/2024 7:46 PM EDT [facility] Bacteria, Urine Few(A) Negative /HPF LAB URINALYSIS - AUTOMATED METHOD 11/13/2024 7:46 PM EDT [facility] Hyaline Casts, Urine 0 0 - 3 /LPF LAB URINALYSIS - AUTOMATED METHOD 11/13/2024 7:46 PM EDT [facility] Urine Urine specimen obtained by clean catch procedure / Unknown Non-blood Collection / Unknown 11/13/2024 4:33 PM EDT 11/13/2024 4:33 PM EDT Shailesh Ferrell MD LAB URINE ORDERABLES Final Resul t Performing Organization Address City/State/[facility] Co de Phone Number [facility] [address] [place] [address], [place] [phone] * PATHOLOGIST REVIEW PROTEIN ELECTROPHORESIS (11/13/2024 4:33 PM EDT) Pathologist Interpretation 11/18/2024 6:13 PM EDT [facility] Blood Venous blood specimen / Unknown Venipuncture / Unknown 11/13/2024 4:33 PM EDT 11/13/2024 4:33 PM EDT Divina Hoffman MD LAB BLOOD ORDERABLES Final Res ult [facility] [address] [place] [address], [place] [phone] * Tam urine culture tube (11/13/2024 4:33 PM EDT) Extra Tube Hold for add-ons. 11/13/2024 7:01 PM EDT [facility] Comment:Auto resulted. Urine Urine specimen obtained by clean catch procedure / Unknown Non-blood Collection / Unknown 11/13/2024 4:33 PM EDT 11/13/2024 4:33 PM EDT Shailesh Ferrell MD LAB URINE ORDERABLES Final Resul t Performing Organization Address [facility]/ZIP Co de Phone Number [facility] [address] [place] [address], [place] [phone] * Huguley-lambda free light chains, quantitative (11/13/2024 4:33 PM EDT) [place] Free Light Chain 0.96 0.33 - 1.94 mg/dL 11/17/2024 1:58 PM EDT [facility] Lambda Free Light Chain 0.79 0.57 - 2.63 mg/dL 11/17/2024 1:58 PM EDT [facility] Huguley/Lambda FLC Ratio 1.22 0.26 - 1.65 11/17/2024 1:58 PM EDT [facility] Comment: Test performed at [facility], [address], [place] [address] Ivy Mendoza MD, PhD - Patient Manager Blood Venous blood specimen / Unknown Venipuncture / Unknown 11/13/2024 4:33 PM EDT 11/13/2024 4:33 PM EDT Divina Hoffman MD LAB BLOOD ORDERABLES Final Res ult [facility] [address] [place] [address] * Cyclic citrullinated peptide, IgG and IgA (11/13/2024 4:33 PM EDT) [facility] CCP AB Quant 6 <20 Units LAB CHEMISTRY METHOD 11/18/2024 11:00 AM EDT [facility] Cyclic Citrullinated Peptide (CCP) Antibody Negative Negative LAB CHEMISTRY METHOD 11/18/2024 11:00 AM EDT [facility] Blood Venous blood specimen / Unknown Venipuncture / Unknown 11/13/2024 4:33 PM EDT 11/13/2024 4:33 PM EDT us Divina Hoffman MD LAB BLOOD ORDERABLES Final Res ult Performing Organization Address [facility]/ZIP Co de Phone Number [facility] [address] [place] [address], [place] [phone] * Sedimentation rate (11/13/2024 4:33 PM EDT) Only the most recent of2 resultswithin the time period is included. [facility] Sed Rate 3 0 - 20 mm/hr LAB HEMETOLOGY METHOD 11/13/2024 6:43 PM EDT [facility] Blood Venous blood specimen / Unknown Venipuncture / Unknown 11/13/2024 4:33 PM EDT 11/13/2024 4:33 PM EDT us Divina Hoffman MD LAB BLOOD ORDERABLES Final Res ult Performing Organization Address City/[facility]/ZIP Co de Phone Number [facility] [address] [place] [address], [place] [phone] * Culture urine (11/13/2024 4:33 PM EDT) [facility] Culture, Urine 10,000-49,000 CFU/mL Mixed urogenital beverly, no uropathogens present. Suggest repeat specimen if clinically indicated. 11/15/2024 9:01 AM EDT [facility] Urine Urine specimen obtained by clean catch procedure / Unknown Non-blood Collection / Unknown 11/13/2024 4:33 PM EDT 11/13/2024 7:46 PM EDT Shailesh Ferrell MD LAB MICROBIOLOGY - GENERAL ORDER MANISH Final Result Performing Organization Address [facility]/ZIP Co de Phone Number [facility] [address] [place] [address], [place] [phone] * Immunofixation electrophoresis serum (11/13/2024 4:33 PM EDT) [facility] Immunofixation Result, Serum No monoclonal immunoglobulins detected. LAB CHEMISTRY METHOD 11/18/2024 10:45 AM EDT [facility] Blood Venous blood specimen / Unknown Venipuncture / Unknown 11/13/2024 4:33 PM EDT 11/13/2024 4:33 PM EDT Divina Hoffman MD LAB BLOOD ORDERABLES Final Res ult Performing Organization Address [facility]/ZIP Co de Phone Number [facility] [address] [place] [address], [place] [phone] * Immunoglobulins IgG, IgA, IgM (11/13/2024 4:33 PM EDT) [facility] Total IgG 991 549 - 1,584 mg/dL LAB CHEMISTRY METHOD 11/13/2024 7:25 PM EDT [facility] IgA 113 61 - 348 mg/dL LAB CHEMISTRY METHOD 11/13/2024 7:25 PM EDT [facility] IgM 144 23 - 259 mg/dL LAB CHEMISTRY METHOD 11/13/2024 7:25 PM EDT [facility] Blood Venous blood specimen / Unknown Venipuncture / Unknown 11/13/2024 4:33 PM EDT 11/13/2024 4:33 PM EDT us Divina Hoffman MD LAB BLOOD ORDERABLES Final Res ult [facility] [address] [place] [address], [place] [phone] * C-reactive protein (11/13/2024 4:33 PM EDT) Only the most recent of2 resultswithin the time period is included. C-Reactive Protein <0.29 <=0.50 mg/dL LAB CHEMISTRY METHOD 11/13/2024 7:17 PM EDT [facility] Blood Venous blood specimen / Unknown Venipuncture / Unknown 11/13/2024 4:33 PM EDT 11/13/2024 4:33 PM EDT us Divina Hoffman MD LAB BLOOD ORDERABLES Final Res ult Performing Organization Address [facility]/ZIP Co de Phone Number [facility] [address] [place] [address], [place] [phone] * (ABNORMAL) Uric acid (11/13/2024 4:33 PM EDT) Only the most recent of2 resultswithin the time period is included. Uric Acid 1.7(L) 3.1 - 7.8 mg/dL LAB CHEMISTRY METHOD 11/13/2024 7:24 PM EDT [facility] Blood Venous blood specimen / Unknown Venipuncture / Unknown 11/13/2024 4:33 PM EDT 11/13/2024 4:33 PM EDT us Divina Hoffman MD LAB BLOOD ORDERABLES Final Res ult [facility] [address] [place] [address], [place] [phone] * Protein electrophoresis, serum (11/13/2024 4:33 PM EDT) Total Protein 7.1 6.0 - 8.0 g/dL LAB CHEMISTRY METHOD 11/18/2024 6:13 PM EDT [facility] Albumin, Serum 4.0 2.9 - 4.1 g/dL LAB CHEMISTRY METHOD 11/18/2024 6:13 PM EDT [facility] [facility] Alpha 1 Globulin (g/dL) 0.3 0.1 - 0.5 g/dL LAB CHEMISTRY METHOD 11/18/2024 6:13 PM EDT [facility] Alpha 2 Globulin (g/dL) 0.9 0.7 - 1.5 g/dL LAB CHEMISTRY METHOD 11/18/2024 6:13 PM EDT [facility] Beta (g/dL) 1.0 0.7 - 1.5 g/dL LAB CHEMISTRY METHOD 11/18/2024 6:13 PM EDT [facility] Gamma Globulin (g/dL) 1.0 0.7 - 1.9 g/dL LAB CHEMISTRY METHOD 11/18/2024 6:13 PM EDT [facility] SPEP Interpretation No M-Vincent seen. Essentially normal pattern. LAB CHEMISTRY METHOD 11/18/2024 6:13 PM EDT [facility] Blood Venous blood specimen / Unknown Venipuncture / Unknown 11/13/2024 4:33 PM EDT 11/13/2024 4:33 PM EDT us Divina Hoffman MD LAB BLOOD ORDERABLES Final Res ult [facility] [address] [place] [address], * Protein, total (11/13/2024 4:33 PM EDT) Total Protein 7.1 6.0 - 8.0 g/dL LAB CHEMISTRY METHOD 11/13/2024 7:14 PM EDT [facility] Blood Venous blood specimen / Unknown Venipuncture / Unknown 11/13/2024 4:33 PM EDT 11/13/2024 4:33 PM EDT us Divina Hoffman MD LAB BLOOD ORDERABLES Final Res ult Performing Organization Address [facility] Co de Phone Number [facility] [address] [place] [address], [place] [phone] * Interferon gamma interpretation (10/24/2024 9:30 AM EDT) [facility] Quantiferon Plus Interpretation Negative Negative LAB CHEMISTRY METHOD 10/25/2024 1:26 PM EDT [facility] Blood Venous blood specimen / Unknown Venipuncture / Unknown 10/24/2024 9:30 AM EDT 10/24/2024 9:30 AM EDT us Edy Kwan MD LAB BLOOD ORDERABLES Final Resul t Performing Organization Address [facility] de Phone Number [facility] [address] [place] [address], [place] [phone] * Interferon gamma antigen 2 (10/24/2024 9:30 AM EDT) Blood Venous blood specimen / Unknown Venipuncture / Unknown 10/24/2024 9:30 AM EDT 10/24/2024 9:30 AM EDT us Edy Kwan MD LAB BLOOD ORDERABLES Final Resul t Performing Organization Address [facility] Co de Phone Number [facility] [address] [place] [address], [place] [phone] * Interferon gamma antigen 1 (10/24/2024 9:30 AM EDT) Blood Venous blood specimen / Unknown Venipuncture / Unknown 10/24/2024 9:30 AM EDT 10/24/2024 9:30 AM EDT us Edy Kwan MD LAB BLOOD ORDERABLES Final Resul t Performing Organization Address [facility] de Phone Number [facility] [address] [place] [address], [place] [phone] * Interferon gamma mitogen (10/24/2024 9:30 AM EDT) Blood Venous blood specimen / Unknown Venipuncture / Unknown 10/24/2024 9:30 AM EDT 10/24/2024 9:30 AM EDT us Edy Kwan MD LAB BLOOD ORDERABLES Final Resul t Performing Organization Address [facility] de Phone Number [facility] [address] [place] [address], [place] [phone] * Interferon gamma NIL (10/24/2024 9:30 AM EDT) Blood Venous blood specimen / Unknown Venipuncture / Unknown 10/24/2024 9:30 AM EDT 10/24/2024 9:30 AM EDT us Edy Kwan MD LAB BLOOD ORDERABLES Final Resul t Performing Organization Address [facility] de Phone Number [facility] [address] [place] [address], [place] [phone] * Thyroid stimulating hormone with reflex to free t4 and free t3 (10/24/2024 9:30 AM EDT) [facility] Signature TSH 1.16 0.40 - 4.00 mcIU/mL LAB CHEMISTRY METHOD 10/24/2024 2:33 PM EDT [facility] Blood Venous blood specimen / Unknown Venipuncture / Unknown 10/24/2024 9:30 AM EDT 10/24/2024 9:30 AM EDT Shailesh Ferrell MD LAB BLOOD ORDERABLES Final Resul t [facility] [address] [place] [address], * CBC auto differential (10/10/2024 8:48 AM EDT) WBC 7.1 4.8 - 10.8 K/mcL LAB HEMETOLOGY METHOD 10/10/2024 10:35 AM EDT [facility] RBC 4.50 3.80 - 4.80 M/mcL LAB HEMETOLOGY METHOD 10/10/2024 10:35 AM EDT [facility] Hemoglobin 13.3 11.5 - 16.0 g/dL LAB HEMETOLOGY METHOD 10/10/2024 10:35 AM EDT [facility] Hematocrit 40.2 35.0 - 47.0 % LAB HEMETOLOGY METHOD 10/10/2024 10:35 AM EDT [facility] MCV 88.7 79.0 - 98.0 FL LAB HEMETOLOGY METHOD 10/10/2024 10:35 AM EDT [facility] MCH 29.4 27.0 - 32.0 pcg LAB HEMETOLOGY METHOD 10/10/2024 10:35 AM EDT [facility] MCHC 33.1 32.0 - 37.0 g/dL LAB HEMETOLOGY METHOD 10/10/2024 10:35 AM EDT [facility] RDW 12.4 11.0 - 15.0 % LAB HEMETOLOGY METHOD 10/10/2024 10:35 AM EDT [facility] Platelets 227 130 - 400 K/mcL LAB HEMETOLOGY METHOD 10/10/2024 10:35 AM EDT [facility] MPV 10.4 7.0 - 11.0 FL LAB HEMETOLOGY METHOD 10/10/2024 10:35 AM EDT [facility] NRBC 0.0 <1.0 % LAB HEMETOLOGY METHOD 10/10/2024 10:35 AM [facility] NRBC Absolute 0.00 <0.10 K/mcL LAB HEMETOLOGY METHOD 10/10/2024 10:35 AM [facility] Neutrophils Relative 70.2 % LAB HEMETOLOGY METHOD 10/10/2024 10:35 AM [facility] Lymphocytes Relative 22.2 % LAB HEMETOLOGY METHOD 10/10/2024 10:35 AM [facility] Monocytes Relative 5.5 % LAB HEMETOLOGY METHOD 10/10/2024 10:35 AM [facility] Eosinophils Relative 1.1 % LAB HEMETOLOGY METHOD 10/10/2024 10:35 AM [facility] Basophils Relative 0.6 % LAB HEMETOLOGY METHOD 10/10/2024 10:35 AM [facility] Immature Granulocytes Relative 0.4 % LAB HEMETOLOGY METHOD 10/10/2024 10:35 AM [facility] Neutrophils Absolute 4.99 1.50 - 7.00 K/mcL LAB HEMETOLOGY METHOD 10/10/2024 10:35 AM [facility] Lymphocytes Absolute 1.58 1.00 - 5.00 K/mcL LAB HEMETOLOGY METHOD 10/10/2024 10:35 AM [facility] Monocytes Absolute 0.39 0.20 - 1.00 K/mcL LAB HEMETOLOGY METHOD 10/10/2024 10:35 AM [facility] Eosinophils Absolute 0.08 0.00 - 0.50 K/mcL LAB HEMETOLOGY METHOD 10/10/2024 10:35 AM [facility] Basophils Absolute 0.04 0.00 - 0.20 K/mcL LAB HEMETOLOGY METHOD 10/10/2024 10:35 AM EDT [facility] Immature Granulocytes Absolute 0.03 0.00 - 0.03 K/mcL LAB HEMETOLOGY METHOD 10/10/2024 10:35 AM EDT [facility] Blood Venous blood specimen / Unknown Venipuncture / Unknown 10/10/2024 8:48 AM EDT 10/10/2024 8:49 AM EDT Lee Ann PALMER LAB BLOOD ORDERABLES Final Resu lt Performing Organization Address City/[facility]/ZIP Co de Phone Number [facility] [address] [place] [address], [place] [phone] * Rheumatoid factor (10/10/2024 8:48 AM EDT) Rheumatoid Factor <10.0 <15.0 I Unit/mL LAB CHEMISTRY METHOD 10/10/2024 11:02 AM EDT [facility] Blood Venous blood specimen / Unknown Venipuncture / Unknown 10/10/2024 8:48 AM EDT 10/10/2024 8:49 AM EDT Lee Ann PALMER LAB BLOOD ORDERABLES Final Resu lt Performing Organization Address City/[facility]/ZIP Co de Phone Number [facility] [address] [place] [address], [place] [phone] * Basic metabolic panel (10/10/2024 8:48 AM EDT) Sodium 136 133 - 145 mmol/L LAB CHEMISTRY METHOD 10/10/2024 10:59 AM EDT [facility] Potassium 4.2 3.5 - 5.5 mmol/L LAB CHEMISTRY METHOD 10/10/2024 10:59 AM EDT [facility] Chloride 106 96 - 110 mmol/L LAB CHEMISTRY METHOD 10/10/2024 10:59 AM EDT [facility] CO2 22 21 - 32 mmol/L LAB CHEMISTRY METHOD 10/10/2024 10:59 AM EDT [facility] Anion Gap 8 3 - 11 LAB CHEMISTRY METHOD 10/10/2024 10:59 AM EDT [facility] Glucose 80 70 - 100 mg/dL LAB CHEMISTRY METHOD 10/10/2024 10:59 AM T [facility] BUN 10 5 - 25 mg/dL LAB CHEMISTRY METHOD 10/10/2024 10:59 AM [facility] Creatinine 0.65 0.50 - 1.10 mg/dL LAB CHEMISTRY METHOD 10/10/2024 10:59 AM [facility] eGFR 116 >=60 mL/min/1. 73m2 LAB CHEMISTRY METHOD 10/10/2024 10:59 AM [facility] Comment:Calculation based on the Chronic Kidney Disease Epidemiology Collaboration (CKD-EPI) equation refit without adjustment for race. BUN/Creatinine Ratio 15.4 LAB CHEMISTRY METHOD 10/10/2024 10:59 AM [facility] Calcium 9.1 8.5 - 10.5 mg/dL LAB CHEMISTRY METHOD 10/10/2024 10:59 AM [facility] Blood Venous blood specimen / Unknown Venipuncture / Unknown 10/10/2024 8:48 AM EDT 10/10/2024 8:49 AM EDT us Lee Ann PALMER LAB BLOOD ORDERABLES Final Resu lt [facility] [address] [place] [address], * XR Hand 3+ Views Right (10/03/2024 [...] Signed Date: 10/03/2024 09:50 ET Workstation ID: [id number] Transcribed By: Self Edit Transcribed Date: 10/03/2024 [...] Signed Date: 10/03/2024 09:50 ET Workstation ID: [id number] Transcribed By: Self Edit Transcribed Date: 10/03/2024 09:44 ET Jay Heck NP IMG XR PROCEDURES Final [...] Signed Date: 10/03/2024 09:52 ET Workstation ID: [id number] Transcribed By: Self Edit Transcribed Date: 10/03/2024 [...] Signed Date: 10/03/2024 09:52 ET Workstation ID: [id number] Transcribed By: Self Edit Transcribed Date: 10/03/2024 09:50 ET Jay Heck NP IMG XR PROCEDURES Final Result from Last [address] [place] [id number] MEDICARE MEDICAID - [place] Care Teams Clean Up Supervisor Relationship Specialty Start Date End Date Shailesh Ferrell MD [address] [place] [phone] PCP - General 06/09/22
--- OUTSIDE RECORDS SUMMARY | 2024-12-16 13:38 | XMS_ITS | Encounter Summary ---
Author Organization [employer] Address [address] [place] [address] Care Team Providers Care Supervisor Farm Equipment Maintenance Name Role Phone Shailesh Ferrell MD Primary Care Provider [phone] Reason for Visit * Reason Onset Date Comments Urinary Frequency 11/12/2024 Patient incont inent Encounter Details Date Type Department Care Team ([facility] st Contact Info) Description 11/12/2024 Telephone Internal Medicine - [place] 175 [facility] [address] [place] [address] Shailesh Ferrell MD 175 [facility] [address] [place] [address] Social History Tobacco Use Types Packs/Day Years [...] for your loved ones. For example, children's institution attendant or elderly care for an older adult? [...] 4:17 PM EDT Call to pt # [phone], spoke to pt mother on VR Ordered [...] 02/12/2025 9:00 AM EST Office Visit Rheumatology [facility] [address] [place] [phone] Divina Hoffman MD [address] [place] [phone] 02/13/2025 8:00 AM EST Office Visit Gastroenterology - [place] 175 [facility] 175 [facility] [address] [place] [phone] Gissell Olivera NP 175 [facility] [address] [place] [address] 06/18/2025 9:30 AM EDT Office Visit Rheumatology [facility] [address] [place] [phone] Divina Hoffman MD [address] [place] [phone] documented as of this encounter Visit Diagnoses Diagnosis Infective urethritis- Primary documented in this encounter Additional Health Concerns Assessment Noted Time PHQ-9 Depression Total Score: 10 09/10/2 025 9:43 AM EDT A fall risk assessment has been complete d for the patient 10/24/2024 9:03 AM EDT documented as of this encounter Care Teams Supervisor Farm Equipment Maintenance Relationship Specialty Start Date End Date Shailesh Ferrell MD [address] [phone] PCP - General 06/09/22 documented as of this encounter
--- OUTSIDE RECORDS SUMMARY | 2024-12-16 13:39 | XMS_ITS | Encounter Summary ---
Author Organization [employer] Address [address] [place] [address] Care Team Providers Care Emt/Dispatcher Name Role Phone Shailesh Ferrell MD Primary Care Provider [phone] Encounter Details Date Type Department Care Team (Late st Contact Info) Description 06/23/2024 Nurse Triage Gastroenterology - [place] [address] [place] [phone] Karsten Gonzales, ESTLEA [address] [place] [phone] Social History Tobacco Use Types Packs/Day Years [...] 9:00 AM EST Office Visit Rheumatology - [place] [address] [place] [address] Divina Hoffman MD [address] [place], [place] [phone] 02/13/2025 8:00 AM EST Office Visit Gastroenterology - [place] [address] [facility] [address] [place] [phone] Gissell Olivera NP 175 [facility] [address] [place] [address] 06/18/2025 9:30 AM EDT Office Visit Rheumatology - [place] [address] [place] [phone] Divina Hoffman MD [address] [place] [address] documented as of this encounter Visit Diagnoses Not on filedocumented in this encounter Care Teams Emt/Dispatcher Relationship Specialty Start Date End Date Shailesh Ferrell MD 175 [facility] [address] [place] [phone] PCP - General 06/09/22 documented as of this encounter
== END 2024-12-16 11:16 | disposition home or self-care (01) ==
LOC: HO.HSM 11:01
PROVIDERS: PCP Student in an Organized Health Care Education/Training Program; Visit Provider Psychiatry & Neurology Neurology
DX: G93.49 Other encephalopathy (principal)
CPT/HCPCS: 99214

== ENCOUNTER → 2024-12-16 11:00 | Outpatient (BNVA) | payer MEDICARE, MEDICAID, SELFPAY | PROVIDERS: PCP Student in an Organized Health Care Education/Training Program; Visit Provider Psychiatry & Neurology Neurology | DX: G93.49 Other encephalopathy (principal); F09 Unspecified mental disorder due to known physiological condition | CPT/HCPCS: 99212 ==